=== PATIENT | female | born 1940 | race Caucasian/White ===

== ENCOUNTER 2022-11-21 17:51 | Inpatient (IN) ==
[2022-11-21] MEDS ORDERED: ACETAMINOPHEN 500 MG TAB PO STA (18:09)
[2022-11-21 18:21] LABS: Basophils # (auto) 0.04 K/uL (0-0.2); Basophils % (auto) 0.7 %; Eosinophils # (auto) 0.01 K/uL (0-0.50); Eosinophils % (auto) 0.2 %; Hematocrit (blood only) 46.1 % (34.1-44.9); Hemoglobin 16.2 g/dl (12.0-16.0); Immature Granulocytes # (auto) 0.04 K/uL (0.00-0.02); Immature Granulocytes % (auto) 0.7 %; Lymphocytes # (auto) 1.57 K/uL (1.2-3.4); Lymphocytes % (auto) 26.5 %; Mean Corpuscular Hemoglobin 34.3 pg (25.0-34.0); Mean Corpuscular Hgb Conc 35.1 g/dL (32.0-36.0); Mean Corpuscular Volume 97.7 fL (80.0-100.0); Mean Platelet Volume 10.8 fL (9.4-12.3); Monocytes # (auto) 0.53 K/uL (0.24-0.82); Monocytes % (auto) 8.9 %; Neutrophils # (auto) 3.74 K/uL (1.4-6.5); Platelet Count 152 K/uL (130-400); RDW Coefficient of Variation 12.9 % (11.5-14.5); RDW Standard Deviation 46.5 fL (36.4-46.3); Red Blood Count 4.72 M/uL (3.93-5.22); White Blood Count 5.93 K/ul (4.8-10.8)
[2022-11-21 18:42] LABS: Alanine Aminotransferase 29 U/L (7-52); Albumin Globulin Ratio 1.3 (0.9-2); Albumin Level 3.8 gm/dl (3.4-5.0); Alkaline Phosphatase 71 U/L (34-104); Anion Gap 8 (3-11); Aspartate Aminotransferase 40 U/L (13-39); BUN Creatinine Ratio 15.8 (10-20); Bilirubin,Total 0.5 mg/dl (0.2-1.0); Blood Urea Nitrogen 18 mg/dl (6-23); Calcium 8.6 mg/dl (8.5-10.1); Carbon Dioxide 25 mmol/L (21-32); Chloride 101 mmol/L (98-107); Est GFR (African American) 51.9 ml/min; Est GFR (Non-African American) 44.7 ml/min; Globulin 2.9 gm/dl (2.5-4.0); Glucose 72 mg/dl (70-99(Fasting)); Potassium 3.5 mmol/L (3.5-5.1); Sodium 134 mmol/L (136-145); Total Protein 6.7 gm/dl (6.0-8.3)
--- NOTE | 2022-11-21 18:58 | XRay Report ---
SINGLE VIEW CHEST CLINICAL HISTORY: Generalized weakness. FINDINGS: An AP, portable, upright chest radiograph is compared to study dated 11/22/2021. The cardiome diastinal silhouette is unremarkable noting atherosclerotic calcification of the thoracic aorta. Emph ysema and chronic interstitial thickening is similar to previous. Foci of parenchymal scarring are se en throughout both lungs, greatest at the lung bases. No airspace consolidation or large pleural effu serina is identified. No pneumothorax is seen. The skeletal structures are osteopenic. The bony thorax is grossly intact. IMPRESSION: Emphysematous change with no acute cardiopulmonary abnormality identified. ACT 112: Negative or not required by law. Electronically signed by: Liban Cavanaugh M.D. 11/21/2022 6:56 PM
[2022-11-21 19:01] LABS: Influenza B virus by PCR Negative (Neg); RSV by PCR Negative (Neg); SARS CoV2 RNA(COVID-19) Ceph NEGATIVE (Negative)
--- NOTE | 2022-11-21 19:05 | Emergency Department Note ---
Impression & Plan Influenza A, Fever, Hypoxia, Weakness ED Provider Note INFORMANT: Patient and family ED PROVIDER(S): Luther Gillespie MD CHIEF COMPLAINT: Flulike symptoms PLAN: Disposition: Admitted Condition: Good Outpatient prescription management: none Referral: None MEDICAL DECISION MAKING: Patient presented because of flulike symptoms. A work-up was initiated. She was mildly low on her O2 saturations down into the 88% range. I did apply 2 L nasal cannula oxygen and she did respond nicely. Was hydrated with normal saline. Chest x-ray was unremarkable. Patient had viral testing performed and was found to be positive for influenza A. She was treated with oral Tamiflu. Because of the weakness and low O2 saturations patient will need further management in the hospital. Her urinalysis was pending. Patient's ECG showed a normal sinus rhythm without acute ischemic change. [facility], Dr. Smith. Case was discussed and diagnostics were reviewed. Patient was admitted for further management. Triage Nursing notes reviewed and agree them. Vital Signs: reviewed and remarkable for mild hypoxia Prior /Outside records reviewed: none Differential diagnosis: Viral syndrome, COPD, reactive airway, dehydration, pneumonia, influenza, meningitis, urinary tract infection, sepsis, bacteremia, as well as other pathologies. Diagnostics, as interpreted by me: ECG: Twelve-lead ECG reveals a normal sinus rhythm at 60 bpm. Septal Q waves present. No ST elevation or depression. Cardiac Monitoring: Cardiac monitoring ordered by me: The patient was placed on continuous cardiac monitoring and observed. It revealed a sinus bradycardia 57 beats per minute without ectopy or evidence of dysrhythmia. Medical decision rules: none Imaging studies: Chest imaging consistent with emphysematous changes without obvious infiltrate. I refer you to the EMR for further details. HPI: The patient is a 82 year old female who presents to the Emergency Room with complaints of flulike symptoms. This started few days ago and is worse today per family. Patient lives alone but family is present to help with history. The patient also notes the following associated symptoms, weakness, shortness of breath, fever, dizziness, nausea. The patient has found no relieving factors. Current pain is rated as 0/10. No known sick contacts. Pt denies LOC,chills, diaphoresis, visual changes, neck pain, chest pain, breathing difficulties, vomiting, abdominal pain, back pain, diarrhea, urinary symptoms, numbness, lymphadenopathy, rash, or other complaints. PAST MEDICAL HISTORY: See Below, hypertension PAST SURGICAL HISTORY: See Below, SOCIAL HISTORY: See Below, smoker HOME MEDICATIONS: See Below ALLERGIES: See Below VITALS: See Below PHYSICAL EXAMINATION: GENERAL: Awake, alert, mildly ill appearing, no distress HEAD: Normocephalic, atraumatic. No edema. EYES: Normal conjunctiva. Sclera non-icteric. NOSE: Mild congestion. OROPHARYNX: Lips, tongue, and mucosa unremarkable. No erythema or exudate. NECK: Inspection normal. Non-tender. Supple. No nuchal rigidity. FROM. No adenopathy. RESPIRATORY: Few scattered rhonchi otherwise CTA bilaterally. No wheezes rales. Mildly increased respiratory effort. CARDIAC: Borderline tachycardic rate. Normal rhythm. No murmurs. No rubs. GI: Soft, non distended. No tenderness to palpation. NEURO: Normal sensorium. Normal speech. SKIN: No rash or jaundice noted. Past Med/Surg History Medical History Acid reflux Benign hypertension (09/29/11) Depression Diabetes mellitus Diverticulitis Forgetfulness DISCUSSED WITH PCP History of anesthesia reaction WITH HYSTERECTOMY TOOK A LONGER TIME TO COME OUT OF History of gout Hyperlipidemia Hypothyroid Kidney disease STAGE 3 Vitamin B 12 deficiency Surgical History H/O tubal ligation History of cholecystectomy History of colonoscopy with polypectomy History of hysterectomy History of left cataract surgery Hx of left breast biopsy Family History Son Family history of diabetes mellitus Son Family history of diabetes mellitus Social History Smoking Status: Current every day smoker Tobacco Type: Cigarettes Cigarettes Per Day: 20; Second Hand Exposure: No; Do You Dip or Chew Tobacco: No; Tobacco Cessation Education Requested by Patient: No Hx Alcohol Use: No Hx Substance Use: No Preferred Language: [place] Communication Ability: Effective Compliance Consultant Required: Yes Beliefs That Will Affect Care: None Current Living Situation: Alone Feels Safe at Home: Yes Safety Concerns: Feels Safe At This Time Assistive Devices: None, Cane, Glasses and Oxygen - Continuous Allergies Allergies Allergy/AdvReac Type Severity Reaction Status Date / Time indomethacin Allergy Unknown Rash Verified 11/21/22 22:13 paroxetine Allergy Unknown Rash Verified 11/21/22 22:13 cyclobenzaprine AdvReac Unknown Vomiting Verified 11/21/22 22:13 Macrolide Antibiotics AdvReac Unknown SKIN Verified 11/21/22 22:13 REDDENED, BURNING metformin AdvReac Unknown Diarrhea Verified 11/21/22 22:13 NSAIDS (Non-Steroidal AdvReac Unknown PT HAS Verified 11/21/22 22:13 Anti-Inflamma KIDNEY DISEASE - REASON THIS IS LISTED rofecoxib AdvReac Unknown BLACK Verified 11/21/22 22:13 STOOLS Sulfa (Sulfonamide AdvReac Unknown Headache Verified 11/21/22 22:13 Antibiotics) Sympathomimetics Allergy Unknown PT Uncoded 11/21/22 22:13 DAUGHTER DOES NOT RECALL THIS ONE Home Meds Home Medications Medication Instructions Recorded Confirmed albuterol sulfate 90 mcg/actuation 2 inh inhalation Q6H PRN Shortness 12/02/21 11/21/22 aerosol inhaler Of Breath Or Wheezing allopurinol 100 mg tablet 200 mg PO QAM 12/02/21 11/21/22 aspirin 81 mg tablet,delayed 81 mg PO HS 12/02/21 11/21/22 release atorvastatin 40 mg tablet 40 mg PO QAM 12/02/21 11/21/22 calcium carbonate 500 mg calcium 500 mg PO QAM 12/02/21 11/21/22 (1,250 mg) chewable tablet cholecalciferol (vitamin D3) 25 12.5 mcg PO 3XWK 12/02/21 11/21/22 mcg (1,000 unit) tablet (Vitamin D3) cyanocobalamin (vitamin B-12) 100 400 mcg PO DAILY 12/02/21 11/21/22 mcg tablet (Vitamin B-12) fluoxetine 40 mg capsule (Prozac) 40 mg PO QAM 12/02/21 11/21/22 fluticasone propionate 50 2 spray intranasal UD PRN Nasal 12/02/21 11/21/22 mcg/actuation nasal Congestion spray,suspension furosemide 20 mg tablet (Lasix) 20 mg PO 2XWK 12/02/21 11/21/22 glipizide 10 mg tablet 10 mg PO BID 12/02/21 11/21/22 levothyroxine 125 mcg tablet 125 mcg PO DAILYBB 12/02/21 11/21/22 lisinopril 20 mg tablet 10 mg PO QAM 12/02/21 11/21/22 loratadine 10 mg tablet (Claritin) 10 mg PO QAM 12/02/21 11/21/22 magnesium chloride 64 mg 64 mg PO BID 12/02/21 11/21/22 (magnesium chloride) tablet,delayed release (Mag 64) meclizine 25 mg tablet 25 mg PO TID PRN Dizziness 12/02/21 11/21/22 metoprolol succinate 100 mg 100 mg PO DAILY 12/02/21 11/21/22 tablet,extended release 24 hr omeprazole 40 mg capsule,delayed 40 mg PO QAM 12/02/21 11/21/22 release dicyclomine 10 mg capsule 10 mg PO QID PRN Cramps 11/21/22 11/21/22 ferrous sulfate 325 mg (65 mg 325 mg PO BID 11/21/22 11/21/22 iron) tablet Results & Data (ED) Vital Signs Vital Signs - 24 hr 11/21/22 17:59 11/21/22 17:59 11/21/22 19:40 Temperature 39.2 C H 39.2 C H 36.8 C Temperature Source Oral Oral Oral Pulse Rate 72 Pulse Rate [Apical] 72 65 Respiratory Rate 20 20 20 Respiratory Effort / Characteristics Non-Labored Non-Labored Non-Labored Respiratory Depth Normal Normal Normal Blood Pressure 141/76 H Blood Pressure [Right Arm] 141/76 H 139/47 L Blood Pressure Mean 97 Blood Pressure Mean [Right Arm] 97 77 Pulse Oximetry 91 91 95 Oxygen Delivery Method Room Air Room Air Nasal Cannula Oxygen Flow Rate 2 Sepsis Recent Fever Within 48 Hours Yes Sepsis New/Unexplained Change in Mental Status No Sepsis Action Taken by Nursing No Action Required 11/21/22 20:00 Temperature Temperature Source Pulse Rate Pulse Rate [Apical] 54 L Respiratory Rate 22 Respiratory Effort / Characteristics Respiratory Depth Blood Pressure Blood Pressure [Right Arm] Blood Pressure Mean Blood Pressure Mean [Right Arm] Pulse Oximetry 94 Oxygen Delivery Method Nasal Cannula Oxygen Flow Rate 2 Sepsis Recent Fever Within 48 Hours Sepsis New/Unexplained Change in Mental Status Sepsis Action Taken by Nursing Laboratory Data Result diagrams: 11/21/22 18:00 11/21/22 18:00 Lab Results 0111/21/22 11/21/22 Range/Units 18:00 18:00 18:00 WBC 5.93 (4.8-10.8) K/ul RBC 4.72 (3.93-5.22) M/uL Hgb 16.2 H (12.0-16.0) g/dl Hct 46.1 H (34.1-44.9) % MCV 97.7 (80.0-100.0) fL MCH 34.3 H (25.0-34.0) pg MCHC 35.1 (32.0-36.0) g/dL RDW Std Deviation 46.5 H (36.4-46.3) fL RDW Coeff of Kaitlynn 12.9 (11.5-14.5) % Plt Count 152 (130-400) K/uL MPV 10.8 (9.4-12.3) fL Immature Gran % (Auto) 0.7 % Neut % (Auto) 63.0 % Lymph % (Auto) 26.5 % Marathon % (Auto) 8.9 % Eos % (Auto) 0.2 % Baso % (Auto) 0.7 % Neut # (Auto) 3.74 (1.4-6.5) K/uL Lymph # (Auto) 1.57 (1.2-3.4) K/uL [place] # (Auto) 0.53 (0.24-0.82) K/uL Eos # (Auto) 0.01 (0-0.50) K/uL Baso # (Auto) 0.04 (0-0.2) K/uL Immature Gran # (Auto) 0.04 H (0.00-0.02) K/uL Sodium 134 L (136-145) mmol/L Potassium 3.5 (3.5-5.1) mmol/L Chloride 101 (98-107) mmol/L Carbon Dioxide 25 (21-32) mmol/L Anion Gap 8 (3-11) BUN 18 (6-23) mg/dl Creatinine 1.14 (0.6-1.2) mg/dl Est Cr Clr Drug Dosing Not Reportable Est GFR ( Amer) 51.9 ml/min Est GFR (Non-Af Amer) 44.7 ml/min BUN/Creatinine Ratio 15.8 (10-20) Glucose 72 (70-99(Fasting)) mg/dl Calcium 8.6 (8.5-10.1) mg/dl Total Bilirubin 0.5 (0.2-1.0) mg/dl AST 40 H (13-39) U/L ALT 29 (7-52) U/L Alkaline Phosphatase 71 (34-104) U/L Total Protein 6.7 (6.0-8.3) gm/dl Albumin 3.8 (3.4-5.0) gm/dl Globulin 2.9 (2.5-4.0) gm/dl Albumin/Globulin Ratio 1.3 (0.9-2) TSH 2.557 (0.300-4.500) uIu/ml SARS-CoV-2 (PCR) (Negative) Influenza Type A (PCR) (Neg) Influenza Type B (PCR) (Neg) RSV (RT-PCR) (Neg) 11/21/22 Range/Units 18:00 WBC (4.8-10.8) K/ul RBC (3.93-5.22) M/uL Hgb (12.0-16.0) g/dl Hct (34.1-44.9) % MCV (80.0-100.0) fL MCH (25.0-34.0) pg MCHC (32.0-36.0) g/dL RDW Std Deviation (36.4-46.3) fL RDW Coeff of Kaitlynn (11.5-14.5) % Plt Count (130-400) K/uL MPV (9.4-12.3) fL Immature Gran % (Auto) % Neut % (Auto) % Lymph % (Auto) % Marathon % (Auto) % Eos % (Auto) % Baso % (Auto) % Neut # (Auto) (1.4-6.5) K/uL Lymph # (Auto) (1.2-3.4) K/uL Marathon # (Auto) (0.24-0.82) K/uL Eos # (Auto) (0-0.50) K/uL Baso # (Auto) (0-0.2) K/uL Immature Gran # (Auto) (0.00-0.02) K/uL Sodium (136-145) mmol/L Potassium (3.5-5.1) mmol/L Chloride (98-107) mmol/L Carbon Dioxide (21-32) mmol/L Anion Gap (3-11) BUN (6-23) mg/dl Creatinine (0.6-1.2) mg/dl Est Cr Clr Drug Dosing Est GFR ( Amer) ml/min Est GFR (Non-Af Amer) ml/min BUN/Creatinine Ratio (10-20) Glucose (70-99(Fasting)) mg/dl Calcium (8.5-10.1) mg/dl Total Bilirubin (0.2-1.0) mg/dl AST (13-39) U/L ALT (7-52) U/L Alkaline Phosphatase (34-104) U/L Total Protein (6.0-8.3) gm/dl Albumin (3.4-5.0) gm/dl Globulin (2.5-4.0) gm/dl Albumin/Globulin Ratio (0.9-2) TSH (0.300-4.500) uIu/ml SARS-CoV-2 (PCR) NEGATIVE (Negative) Influenza Type A (PCR) Positive A* (Neg) Influenza Type B (PCR) Negative (Neg) RSV (RT-PCR) Negative (Neg) Administered Medications Albuterol (Albut/Ipratrop 3mg/0.5mg Neb 3 Ml Vial) 3 ml NEB Q4R CARLY; Protocol Stop: 12/21/22 22:59 Last Admin: 11/22/22 02:39 Dose: 3 ml Documented By: Admin: 11/21/22 23:07 Dose: 3 ml Documented By: MELVI Sodium Chloride (Nss 1000ml) 1,000 mls @ 65 mls/hr IV .[id number] [facility] Stop: 11/22/22 12:53 Last Infusion: 11/21/22 23:47 Dose: 65 mls/hr Documented By: Infusion: 11/21/22 23:44 Dose: 0 mls/hr Documented By: Admin: 11/21/22 22:01 Dose: 65 mls/hr Documented By: LIDA Ceftriaxone Sodium 1,000 mg/ (Dextrose) 50 mls @ 100 mls/hr IV Q24H CARLY; Protocol Stop: 11/28/22 21:29 Last Infusion: 11/21/22 22:35 Dose: 0 mls/hr Documented By: Admin: 11/21/22 22:01 Dose: 100 mls/hr Documented By: LIDA Doxycycline Hyclate 100 mg/ (Dextrose) 110 mls @ 50 mls/hr IV Q12H CARLY Stop: 11/28/22 21:59 Last Infusion: 11/22/22 01:27 Dose: 0 mls/hr Documented By: Admin: 11/21/22 22:34 Dose: 50 mls/hr Documented By: JANIS Discontinued Medications Acetaminophen (Acetaminophen 500 Mg Tab) 1,000 mg PO NOW STA Stop: 11/21/22 18:10 Last Admin: 11/21/22 18:26 Dose: 1,000 mg Documented By: JANIS Sodium Chloride (Nss 1000ml) 1,000 mls @ 125 mls/hr IV .Q8H CARLY Stop: 12/21/22 19:59 Last Infusion: 11/21/22 22:02 Dose: 0 mls/hr Documented By: Admin: 11/21/22 20:15 Dose: 125 mls/hr Documented By: JANIS Miscellaneous (Patient's Height &/Or Weight Needed) 1 each N/A Q2H CARLY Stop: 12/21/22 21:44 Last Admin: 11/21/22 22:07 Dose: 1 each Documented By: LIDA Oseltamivir Phosphate (Oseltamivir Phosphate 75 Mg Cap) 75 mg PO NOW STA; Protocol Stop: 11/21/22 19:54 Last Admin: 11/21/22 20:15 Dose: 75 mg Documented By: JANIS Imaging Data Radiologist's Impression: Chest X-Ray 11/21/22 18:08 SINGLE VIEW CHEST CLINICAL HISTORY: Generalized weakness. FINDINGS: An AP, portable, upright chest radiograph is compared to study dated 11/22/2021. The cardiomediastinal silhouette is unremarkable noting atheroscler otic calcification of the thoracic aorta. Emphysema and chronic interstitial thickening is similar to previous. Foci of parenchymal scarring are seen throughout both lungs, greatest at the lung bases. No airspace consolidation or large pleural effusion is identified. No pneumothorax is seen. The skeletal structures are osteopenic. The bony thorax is grossly intact. IMPRESSION: Emphysematous change with no acute cardiopulmonary abnormality identified. ACT 112: Negative or not required by law. Electronically signed by: Liban Cavanaugh M.D. 11/21/2022 6:56 PM Discharge Plan Visit Data Chief Complaint: Illness ED Provider: Luther Gillespie Discharge Problem: Influenza A, Fever, Hypoxia, Weakness Patient Disposition: Admitted As Inpatient Discharge Instructions Interventions: ED Discharge Assessment Last Done: 11/21/22 22:34
[2022-11-21 19:37] LABS: Influenza A virus by PCR Positive (Neg)
[2022-11-21] MEDS ORDERED: OSELTAMIVIR PHOSPHATE 75 MG CAP PO STA (19:53)
[2022-11-21] MEDS ORDERED: SODIUM CHLORIDE 0.9% 1000ML 1,000 ML IV SCH ×2 (20:00→21:30)
[2022-11-21] MEDS ORDERED: MAGNESIUM HYDROXIDE SUSP 30 ML UDC PO PRN (21:31)
[2022-11-21] MEDS ORDERED: ALUMINUM/MAGNESIUM SUSP 30 ML UDC PO PRN (21:31)
[2022-11-21] MEDS ORDERED: ONDANSETRON INJ 2 MG/ML 2 ML VIAL IV PRN (21:31)
--- NOTE | 2022-11-21 21:42 | History & Physical Report ---
Date of Service November 21, 2022 Assessment & Plan (1) Hypoxia: Plan Generalized weakness Influenza A Possible pneumonia Hypoxia Patient presents with 4 days of illness, reports productive cough with yellow sputum, is febrile, not septic at presentation. Admitting WBC WNL, admitting CXR with emphysematous changes with no acute findings. EKG with NSR. On examination mid and basal crackles bilaterally. Patient with abdominal muscle use for breathing. Will get Pro-Toby, will initiate Rocephin and doxycycline IV, Tamiflu, DuoNebs, incentive spirometer when able, supportive management. PT/OT when able, isolation precaution. Labs in a.m. follow admitting blood culture. Sputum culture. Other chronic medical conditions: Resume home meds as able. SSI while in hosp. Heparin subcu DNR/DNI History of Present Illness Chief Complaint: Generalized weakness, flulike illness, cough Primary Care Provider: Elio Morrissey MD 82-year-old lady with PMH of T2DM, HLD, gout, CKD stage III, chronic rhinitis, PVD, abdominal aortic ectasia, HTN, esophageal reflux, IBS, vitamin D deficiency, tobacco use disorder, chronic depression presented to the ED 11/21 with complaint of not feeling good for 3 to 4 days prior to arrival. Patient reports not feeling good since last few days, is sick at stomach with some belly discomfort, no vomiting, becoming weak and easily fatigable, has no appetite, wanted to do nothing but just lay around lately, cough with yellow sputum production, fever, denies any swallowing issues, associated with headache/sore throat/dizziness/lightheadedness. Patient also reports diarrhea since last 2 to 3 days. Patient denies chest pain or palpitation. Patient denies any pain or burning with passing urine. Patient has smoking history [pack years 48], denies use of alcohol or recreational drugs. DNR/DNI per my discussion with the patient and her daughter You at bedside, plan of care was also discussed with them. Family history positive for heart disorder and hypertension in mother and neurological disorder in father. Medications were reviewed with patient's daughter at bedside. Allergies Allergy/AdvReac Type Severity Reaction Status Date / Time indomethacin Allergy Unknown Rash Verified 02/02/22 08:49 paroxetine Allergy Unknown Rash Verified 02/02/22 08:49 cyclobenzaprine AdvReac Unknown Vomiting Verified 02/02/22 08:49 Macrolide Antibiotics AdvReac Unknown SKIN Verified 02/02/22 08:49 REDDENED, BURNING metformin AdvReac Unknown Diarrhea Verified 02/02/22 08:49 NSAIDS (Non-Steroidal AdvReac Unknown PT HAS Verified 02/02/22 08:49 Anti-Inflamma KIDNEY DISEASE - REASON THIS IS LISTED rofecoxib AdvReac Unknown BLACK Verified 02/02/22 08:49 STOOLS Sulfa (Sulfonamide AdvReac Unknown Headache Verified 02/02/22 08:49 Antibiotics) Sympathomimetics Allergy Unknown PT Uncoded 02/02/22 08:49 DAUGHTER DOES NOT RECALL THIS ONE Home Medications Medication Instructions Recorded Confirmed Type albuterol sulfate 90 mcg/actuation 2 inh inhalation Q6H PRN Shortness 12/02/21 01/26/22 History aerosol inhaler Of Breath Or Wheezing allopurinol 100 mg tablet 200 mg PO QAM 12/02/21 01/26/22 History aspirin 81 mg tablet,delayed 81 mg PO HS 12/02/21 01/26/22 History release atorvastatin 40 mg tablet 40 mg PO QAM 12/02/21 01/26/22 History calcium carbonate 500 mg calcium 500 mg PO QAM 12/02/21 01/26/22 History (1,250 mg) chewable tablet cholecalciferol (vitamin D3) 25 12.5 mcg PO 3XWK 12/02/21 01/26/22 History mcg (1,000 unit) tablet (Vitamin D3) cyanocobalamin (vitamin B-12) 100 400 mcg PO DAILY 12/02/21 01/26/22 History mcg tablet (Vitamin B-12) fluoxetine 40 mg capsule (Prozac) 40 mg PO QAM 12/02/21 01/26/22 History fluticasone propionate 50 2 spray intranasal UD PRN Nasal 12/02/21 01/26/22 History mcg/actuation nasal Congestion spray,suspension furosemide 20 mg tablet (Lasix) 20 mg PO UD PRN EDEMA, WT GAIN OF 12/02/21 01/26/22 History >3 LBS. glipizide 10 mg tablet 10 mg PO BID 12/02/21 01/26/22 History levothyroxine 125 mcg tablet 125 mcg PO DAILYBB 12/02/21 01/26/22 History lisinopril 20 mg tablet 10 mg PO QAM 12/02/21 01/26/22 History loratadine 10 mg tablet (Claritin) 10 mg PO QAM 12/02/21 01/26/22 History magnesium chloride 64 mg 64 mg PO BID 12/02/21 01/26/22 History (magnesium chloride) tablet,delayed release (Mag 64) meclizine 25 mg tablet 25 mg PO TID PRN Dizziness 12/02/21 01/26/22 History metoprolol succinate 100 mg 100 mg PO DAILY 12/02/21 01/26/22 History tablet,extended release 24 hr omeprazole 40 mg capsule,delayed 40 mg PO QAM 12/02/21 01/26/22 History release Past Med/Surg History Medical History Acid reflux Benign hypertension (09/29/11) Depression Diabetes mellitus Diverticulitis Forgetfulness DISCUSSED WITH PCP History of anesthesia reaction WITH HYSTERECTOMY TOOK A LONGER TIME TO COME OUT OF History of gout Hyperlipidemia Hypothyroid Kidney disease STAGE 3 Vitamin B 12 deficiency Surgical History H/O tubal ligation History of cholecystectomy History of colonoscopy with polypectomy History of hysterectomy History of left cataract surgery Hx of left breast biopsy Family History Son Family history of diabetes mellitus Son Family history of diabetes mellitus Social History Smoking Status: Current every day smoker Tobacco Type: Cigarettes Cigarettes Per Day: 1ppd; Second Hand Exposure: No; Hx Alcohol Use: No Hx Substance Use: No Preferred Language: Nepali Communication Ability: Effective Acute Care Registered Nurse Required: No Beliefs That Will Affect Care: None Current Living Situation: Alone Feels Safe at Home: Yes Assistive Devices: Denture - Upper, Denture - Lower, Glasses and Hearing Aid - Bilateral Review of Systems Review of Systems: Negative otherwise mentioned in HPI. Physical Exam Physical Exam: GENERAL: Alert and oriented x3. NAD, on 2 L NC O2. Appears ill/weak/frail. HEENT: No pallor, no icterus. Pupils equal, round and reactive to light. Oral mucosa moist. NECK: No JVD, no neck masses. HEART: S1 and S2 heard. Regular rate and rhythm. No murmur, no gallop. RESPIRATORY SYSTEM: Normal AP diameter. No accessory muscle use. No wheezing, mid and basal crackles bilaterally. Abd m. use for breathing ABDOMEN: Soft, bowel sounds present, nontender, no distention. CENTRAL NERVOUS SYSTEM: No facial droop. Speech is clear. Obeys simple commands. Moves extremities. EXTREMITIES: No edema, no erythema seen. Results & Data Results & Data ([facility]) Vital Signs (Past 12 Hours) Vital Signs Temp Pulse Pulse Resp BP BP Pulse Ox 11/21/22 20:00 54 L 22 94 11/21/22 19:40 36.8 C 65 20 139/47 L 95 11/21/22 17:59 39.2 C H 72 20 141/76 H 91 11/21/22 17:59 39.2 C H 72 20 141/76 H 91 O2 Del Method O2 Flow Rate 11/21/22 20:00 Nasal Cannula 2 11/21/22 19:40 Nasal Cannula 2 11/21/22 17:59 Room Air 11/21/22 17:59 Room Air
[2022-11-21] MEDS ORDERED: Patient's HEIGHT &/or WEIGHT Needed SCH (21:45)
[2022-11-21] MEDS: cefTRIAXone SODIUM 1,000 MG in DEXTROSE 5% AD-VAN 50 ML IV SCH (22:01)
[2022-11-21] MEDS: DOXYCYCLINE HYCLATE 100 MG in DEXTROSE 5% 100 ML IV SCH (22:34)
[2022-11-21] MEDS ORDERED: GLUCOSE 10 TAB/TUBE PO PRN (22:53)
[2022-11-21] MEDS ORDERED: FLUTICASONE PROPIONATE NA SPR 16 GM BTL PRN (22:53)
[2022-11-21] MEDS ORDERED: GLUCOSE 40% GEL 15 GM TUBE PO PRN (22:53)
[2022-11-21] MEDS ORDERED: DEXTROSE 50% 50 ML SYRINGE IV PRN (22:53)
[2022-11-21] MEDS ORDERED: GLUCAGON FOR INJ 1 MG VIAL SQ PRN (22:53)
[2022-11-21] MEDS ORDERED: CARBOHYDRATES FOR HYPOGLYCEMIA PO PRN (22:53)
[2022-11-21] MEDS: ALBUT/IPRATROP 3MG/0.5MG NEB 3 ML VIAL NEB SCH (23:07)
[2022-11-22] MEDS: ALBUT/IPRATROP 3MG/0.5MG NEB 3 ML VIAL NEB SCH ×6 (02:39→23:47)
[2022-11-22] MEDS: LEVOTHYROXINE SODIUM 125 MCG TABLET PO SCH (04:58)
[2022-11-22 08:34] LABS: Hematocrit (blood only) 43.4 % (34.1-44.9); Hemoglobin 15.2 g/dl (12.0-16.0); Mean Corpuscular Hemoglobin 34.3 pg (25.0-34.0); Mean Platelet Volume 10.6 fL (9.4-12.3); Platelet Count 133 K/uL (130-400); RDW Coefficient of Variation 12.9 % (11.5-14.5); RDW Standard Deviation 46.4 fL (36.4-46.3); Red Blood Count 4.43 M/uL (3.93-5.22); White Blood Count 6.28 K/ul (4.8-10.8)
[2022-11-22] MEDS: INSULIN ASPART PER UNIT SC SCH ×4 (08:37→20:55)
[2022-11-22] MEDS: LANTUS PER UNIT CHARGE SQ SCH ×2 (08:37→20:56)
[2022-11-22] MEDS: DOXYCYCLINE HYCLATE 100 MG in DEXTROSE 5% 100 ML IV SCH (08:38)
[2022-11-22] MEDS: OSELTAMIVIR PHOSPHATE SUSP 30 MG/5 ML UDP PO SCH ×2 (08:38→21:11)
[2022-11-22] MEDS: HEPARIN SOD 5,000 UNIT/0.5 ML VIAL SQ SCH ×2 (08:41→20:53)
[2022-11-22] MEDS: lisinopril 10 MG TAB PO SCH (08:42)
[2022-11-22] MEDS: CYANOCOBALAMIN (B-12) 100 MCG TABLET PO SCH (08:42)
[2022-11-22] MEDS: ATORVASTATIN 40 MG TAB PO SCH (08:42)
[2022-11-22] MEDS: FLUoxetine HCL 20 MG CAP PO SCH (08:42)
[2022-11-22] MEDS: METOPROLOL SUCC 50MG EXT REL TAB PO SCH (08:42)
[2022-11-22] MEDS: PANTOprazole 40 MG TAB PO SCH (08:42)
[2022-11-22] MEDS: ACETAMINOPHEN 325 MG TAB PO PRN ×2 (08:49→16:20)
[2022-11-22 09:01] LABS: BUN Creatinine Ratio 18.6 (10-20); Calcium 8.2 mg/dl (8.5-10.1); Creatinine Clr Calc Pharmacy 39.7 ml/min; Est GFR (Non-African American) 54.4 ml/min; Magnesium 1.4 mg/dl (1.7-2.4); Phosphorus 3.2 mg/dl (2.5-4.9); Potassium 3.1 mmol/L (3.5-5.1)
--- NOTE | 2022-11-22 12:41 | Electrocardiogram Report ---
Test Reason : Blood Pressure : / mmHG Vent. Rate : 060 BPM Atrial Rate : 060 BPM P-R Int : 148 ms QRS Dur : 090 ms QT Int : 460 ms P-R-T Axes : -24 070 043 degrees QTc Int : 460 ms Normal sinus rhythm with sinus arrhythmia Septal infarct , age undetermined Abnormal ECG No previous ECGs available Confirmed by Dominic Lujan ([id number]) on 11/22/2022 12:40:27 PM Referred By: REFERRED SELF Confirmed By:Dominic Lujan
--- NOTE | 2022-11-22 12:44 | Hospitalist Progress Note ---
Date of Service November 22, 2022 Assessment & Plan (1) Hypoxia: Plan Influenza A Acute bronchitis secondary to above Hypoxia Generalized weakness -CXR:Emphysematous change with no acute cardiopulmonary abnormality identified. -Normal procalcitonin -Blood, sputum culture pending Continue Tamiflu Empirically on Rocephin, doxycycline Continue supplemental oxygen as needed DM II hold p.o. meds Utilize insulin per protocol while hospitalized Monitor BGs Hypothyroidism Continue levothyroxine Hypertension Continue lisinopril, metoprolol PVD Hyperlipidemia On aspirin, Lipitor Mood disorder Continue home medications CKD III Monitor renal function Avoid nephrotoxic agents as able DVT Px: Heparin SQ Code Status DNR/DNI Admission and Anticipated Discharge Date Admission Date: November 21, 2022 Subjective Patient is seen and examined at bedside Less cough, dyspnea today Had 2 loose bowel movements Reports on and off chronic diarrhea at baseline Denies any chest pain, nausea, vomiting, abdominal pain No other complaints Review of Systems Review of Systems: All systems reviewed & are unremarkable except as noted in Subjective Physical Exam Physical Exam: Physical Exam: Vitals signs as noted above General Appearance:Moderately built and nourished, no apparent distress Head: normocephalic, Atraumatic Eyes: normal inspection, EOMI Neck: supple, Trachea midline Respiratory/Chest: Normal breath sounds, CTA, No accessory muscle use Cardiovascular: S1, S2, No murmur Abdomen/GI:Soft, Non tender, Bowel sounds present Extremities/Musculoskeletal:normal inspection, no edema Neurologic/Psych:AAO, grossly no focal neurological deficits, Mild hearing impairment Skin: normal color, warm Results & Data Results & Data ([facility]) Vital Signs (Past 12 Hours) Vital Signs Temp Pulse Pulse Pulse Resp BP Pulse Ox 11/22/22 11:17 59 L 18 115/73 98 11/22/22 11:05 69 18 93 11/22/22 08:00 11/22/22 07:47 37.5 C 77 20 139/80 93 11/22/22 07:39 66 11/22/22 07:12 70 18 96 11/22/22 04:00 36.6 C 71 20 155/79 H 97 11/22/22 02:39 55 L 18 96 O2 Del Method O2 Flow Rate 11/22/22 11:17 Nasal Cannula 11/22/22 11:05 Nasal Cannula 2 11/22/22 08:00 Nasal Cannula 2 11/22/22 07:47 Nasal Cannula 2 11/22/22 07:39 11/22/22 07:12 Nasal Cannula 2 11/22/22 04:00 Nasal Cannula 2 11/22/22 02:39 Nasal Cannula 2 Laboratory Results Short CBC 11/21/22 11/22/22 Range/Units 18:00 07:54 WBC 5.93 6.28 (4.8-10.8) K/ul Hgb 16.2 H 15.2 (12.0-16.0) g/dl Hct 46.1 H 43.4 (34.1-44.9) % Plt Count 152 133 (130-400) K/uL BMP 11/21/22 11/22/22 18:00 07:54 Sodium 134 L 133 L Potassium 3.5 3.1 L Chloride 101 101 Carbon Dioxide 25 23 BUN 18 18 Creatinine 1.14 0.97 Glucose 72 95 Calcium 8.6 8.2 L Liver Function 11/21/22 Range/Units 18:00 Total Bilirubin 0.5 (0.2-1.0) mg/dl AST 40 H (13-39) U/L ALT 29 (7-52) U/L Alkaline Phosphatase 71 (34-104) U/L Albumin 3.8 (3.4-5.0) gm/dl
--- NOTE | 2022-11-22 12:47 | Electrocardiogram Report ---
Test Reason : Blood Pressure : / mmHG Vent. Rate : 061 BPM Atrial Rate : 061 BPM P-R Int : 152 ms QRS Dur : 084 ms QT Int : 438 ms P-R-T Axes : -24 083 054 degrees QTc Int : 440 ms Normal sinus rhythm Septal infarct (cited on or before 21-NOV-2022) Abnormal ECG When compared with ECG of 21-NOV-2022 19:03, (unconfirmed) No significant change was found Confirmed by Dominic Lujan ([id number]) on 11/22/2022 12:47:08 PM Referred By: REFERRED SELF Confirmed By:Dominic Lujan
[2022-11-22] MEDS: ADVANCED PROBIOTIC 1250 MG CAPSULE PO SCH (13:07)
[2022-11-22 17:18] LABS: Adenovirus F 40/41 PCR Not Detected (NotDetected); Astrovirus PCR Not Detected (NotDetected); Campylobacter PCR Not Detected (NotDetected); Cryptosporidium PCR Not Detected (NotDetected); Cyclospora cayetanensis PCR Not Detected (NotDetected); Entamoeba histolytica PCR Not Detected (NotDetected); Enteroaggregative E.coli(EAEC) Not Detected (NotDetected); Enterotoxigenic E.coli (ETEC) Not Detected (NotDetected); Giardia lamblia PCR Not Detected (NotDetected); Norovirus GI/GII PCR Not Detected (NotDetected); Plesiomonas shigelloides PCR Not Detected (NotDetected); Rotavirus A PCR Not Detected (NotDetected); Salmonella PCR Not Detected (NotDetected); Sapovirus PCR Not Detected (NotDetected); Shiga-like Toxin E.coli (STEC) Not Detected (NotDetected); Shigella/Enteroinvasive E.coli Not Detected (NotDetected); Vibrio cholerae PCR Not Detected (NotDetected); Vibrio species PCR Not Detected (NotDetected); Yersinia enterocolitica PCR Not Detected (NotDetected)
[2022-11-22 17:25] LABS: Enteropathogenic E.coli (EPEC) DETECTED (NotDetected)
[2022-11-22] MEDS ORDERED: AZITHROMYCIN 250 MG TAB PO SCH (17:45)
[2022-11-22] MEDS: ASPIRIN 81 MG ECTAB PO SCH (20:53)
[2022-11-22] MEDS: cefTRIAXone SODIUM 1,000 MG in DEXTROSE 5% AD-VAN 50 ML IV SCH (20:59)
[2022-11-22] MEDS ORDERED: DOXYCYCLINE HYCLATE 100 MG CAP PO SCH (21:00)
[2022-11-22 21:49] LABS: Appearance Urine Clear (Clear); Bacteria Urine Automated Negative (Negative); Bilirubin Urine Negative (Negative); Blood Urine Trace (Negative); Color Urine Yellow; Epithelial Cell Urine Auto >30 /lpf (0-5); Glucose Urine UA Negative (Negative); Ketones Urine Negative (Negative); Leukocyte Esterase Urine Trace (Negative); Nitrite Urine Negative (Negative); Protein Urine Trace (Negative); RBC Urine Automated 0-4 /hpf (0-4); Specific Gravity Urine 1.008 (1.000-1.030); Urobilinogen Urine Negative (Negative); pH Urine 5.5 (4.5-7.5)
[2022-11-23] MEDS: ALBUT/IPRATROP 3MG/0.5MG NEB 3 ML VIAL NEB SCH ×6 (02:26→22:55)
[2022-11-23] MEDS: LEVOTHYROXINE SODIUM 125 MCG TABLET PO SCH (05:27)
[2022-11-23] MEDS: lisinopril 10 MG TAB PO SCH (07:49)
[2022-11-23] MEDS: FLUoxetine HCL 20 MG CAP PO SCH (07:49)
[2022-11-23] MEDS: CYANOCOBALAMIN (B-12) 100 MCG TABLET PO SCH (07:50)
[2022-11-23] MEDS: PANTOprazole 40 MG TAB PO SCH (07:50)
[2022-11-23] MEDS: METOPROLOL SUCC 50MG EXT REL TAB PO SCH (07:50)
[2022-11-23] MEDS: ATORVASTATIN 40 MG TAB PO SCH (07:50)
[2022-11-23] MEDS: ADVANCED PROBIOTIC 1250 MG CAPSULE PO SCH (07:50)
[2022-11-23] MEDS: HEPARIN SOD 5,000 UNIT/0.5 ML VIAL SQ SCH ×2 (07:51→21:27)
[2022-11-23] MEDS: OSELTAMIVIR PHOSPHATE SUSP 30 MG/5 ML UDP PO SCH ×2 (07:51→21:37)
[2022-11-23] MEDS: LANTUS PER UNIT CHARGE SQ SCH ×2 (07:55→21:29)
[2022-11-23] MEDS: INSULIN ASPART PER UNIT SC SCH ×4 (07:55→21:28)
[2022-11-23 09:39] LABS: BUN Creatinine Ratio 16.5 (10-20); Calcium 8.8 mg/dl (8.5-10.1); Creatinine Clr Calc Pharmacy 31.8 ml/min; Est GFR (African American) 48.3 ml/min; Est GFR (Non-African American) 41.6 ml/min; Magnesium 1.4 mg/dl (1.7-2.4); Potassium 3.2 mmol/L (3.5-5.1)
[2022-11-23 10:18] LABS: Hematocrit (blood only) 42.4 % (34.1-44.9); Hemoglobin 14.9 g/dl (12.0-16.0); Mean Corpuscular Hemoglobin 34.5 pg (25.0-34.0); Mean Corpuscular Hgb Conc 35.1 g/dL (32.0-36.0); Mean Corpuscular Volume 98.1 fL (80.0-100.0); Mean Platelet Volume 10.7 fL (9.4-12.3); Platelet Count 132 K/uL (130-400); RDW Standard Deviation 47.2 fL (36.4-46.3); Red Blood Count 4.32 M/uL (3.93-5.22); White Blood Count 5.77 K/ul (4.8-10.8)
--- NOTE | 2022-11-23 14:17 | Hospitalist Progress Note ---
Date of Service November 23, 2022 Assessment & Plan (1) Hypoxia: Plan Influenza A Acute bronchitis secondary to above Hypoxia Generalized weakness -CXR:Emphysematous change with no acute cardiopulmonary abnormality identified. -Normal procalcitonin -Blood culture no growth till date Sputum culture moderate normal megan Continue Tamiflu for total of 5 days Continue supplemental oxygen as needed Levaquin for 3 more days Will need outpatient follow-up with pulmonology for management of possible COPD. Diarrhea secondary to enteropathogenic E. coli Bio fire positive for enteropathogenic E. coli.- Reports burning around her mouth with azithromycin Started on Levaquin for 3 days DM II hold p.o. meds Utilize insulin per protocol while hospitalized Monitor BGs Hypothyroidism Continue levothyroxine Hypertension Continue lisinopril, metoprolol PVD Hyperlipidemia On aspirin, Lipitor Mood disorder Continue home medications CKD III Monitor renal function Avoid nephrotoxic agents as able DVT Px: Heparin SQ Code Status DNR/DNI Admission and Anticipated Discharge Date Admission Date: November 21, 2022 Subjective Patient seen and examined at bedside. She is comfortably lying in the bed; not in any distress. Reports 2 episodes of diarrhea in the morning. Oxygen requirement weaned off to room air. Review of Systems Review of Systems: All systems reviewed & are unremarkable except as noted in Subjective Physical Exam Physical Exam: Physical Exam: Vitals signs as noted above General Appearance:Moderately built and nourished, no apparent distress Head: normocephalic, Atraumatic Eyes: normal inspection, EOMI Neck: supple, Trachea midline Respiratory/Chest: Normal breath sounds, CTA, No accessory muscle use Cardiovascular: S1, S2, No murmur Abdomen/GI:Soft, Non tender, Bowel sounds present Extremities/Musculoskeletal:normal inspection, no edema Neurologic/Psych:AAO, grossly no focal neurological deficits, Mild hearing impairment Skin: normal color, warm Results & Data Results & Data ([facility]) Vital Signs (Past 12 Hours) Vital Signs Temp Pulse Pulse Resp BP Pulse Ox O2 Del Method 11/23/22 11:10 36.9 C 66 18 103/65 92 Room Air 11/23/22 10:41 61 18 98 Nasal Cannula 11/23/22 08:00 Nasal Cannula 11/23/22 07:33 37.0 C 73 18 102/56 L 94 Nasal Cannula 11/23/22 07:19 70 11/23/22 05:47 72 18 97 Nasal Cannula 11/23/22 03:34 37 C 65 18 129/75 95 Nasal Cannula O2 Flow Rate 11/23/22 11:10 11/23/22 10:41 2 11/23/22 08:00 3 11/23/22 07:33 3 11/23/22 07:19 11/23/22 05:47 2 11/23/22 03:34 3 Laboratory Results Laboratory Results WBC 5.77 K/ul (4.8-10.8) 11/23/22 08:45 RBC 4.32 M/uL (3.93-5.22) 11/23/22 08:45 Hgb 14.9 g/dl (12.0-16.0) 11/23/22 08:45 Hct 42.4 % (34.1-44.9) 11/23/22 08:45 MCV 98.1 fL (80.0-100.0) 11/23/22 08:45 MCH 34.5 pg (25.0-34.0) H 11/23/22 08:45 MCHC 35.1 g/dL (32.0-36.0) 11/23/22 08:45 RDW Std Deviation 47.2 fL (36.4-46.3) H 11/23/22 08:45 RDW Coeff of Kaitlynn 13.0 % (11.5-14.5) 11/23/22 08:45 Plt Count 132 K/uL (130-400) 11/23/22 08:45 MPV 10.7 fL (9.4-12.3) 11/23/22 08:45 Immature Gran % (Auto) 0.7 % 11/21/22 18:00 Neut % (Auto) 63.0 % 11/21/22 18:00 Lymph % (Auto) 26.5 % 11/21/22 18:00 [place] % (Auto) 8.9 % 11/21/22 18:00 Eos % (Auto) 0.2 % 11/21/22 18:00 Baso % (Auto) 0.7 % 11/21/22 18:00 Neut # (Auto) 3.74 K/uL (1.4-6.5) 11/21/22 18:00 Lymph # (Auto) 1.57 K/uL (1.2-3.4) 11/21/22 18:00 [place] # (Auto) 0.53 K/uL (0.24-0.82) 11/21/22 18:00 Eos # (Auto) 0.01 K/uL (0-0.50) 11/21/22 18:00 Baso # (Auto) 0.04 K/uL (0-0.2) 11/21/22 18:00 Immature Gran # (Auto) 0.04 K/uL (0.00-0.02) H 11/21/22 18:00 Sodium 135 mmol/L (136-145) L 11/23/22 08:45 Potassium 3.2 mmol/L (3.5-5.1) L 11/23/22 08:45 Chloride 102 mmol/L (98-107) 11/23/22 08:45 Carbon Dioxide 24 mmol/L (21-32) 11/23/22 08:45 Anion Gap 9 (3-11) 11/23/22 08:45 BUN 20 mg/dl (6-23) 11/23/22 08:45 Creatinine 1.21 mg/dl (0.6-1.2) H 11/23/22 08:45 Est Cr Clr Drug Dosing 31.8 ml/min 11/23/22 08:45 Est GFR ( Amer) 48.3 ml/min 11/23/22 08:45 Est GFR (Non-Af Amer) 41.6 ml/min 11/23/22 08:45 BUN/Creatinine Ratio 16.5 (10-20) 11/23/22 08:45 Glucose 179 mg/dl (70-99(Fasting)) H 11/23/22 08:45 POC Glucose 137 mg/dl (70-99) H 11/23/22 11:37 Calcium 8.8 mg/dl (8.5-10.1) 11/23/22 08:45 Phosphorus 3.2 mg/dl (2.5-4.9) 11/22/22 07:54 Magnesium 1.4 mg/dl (1.7-2.4) L 11/23/22 08:45 Total Bilirubin 0.5 mg/dl (0.2-1.0) 11/21/22 18:00 AST 40 U/L (13-39) H 11/21/22 18:00 ALT 29 U/L (7-52) 11/21/22 18:00 Alkaline Phosphatase 71 U/L (34-104) 11/21/22 18:00 Total Protein 6.7 gm/dl (6.0-8.3) 11/21/22 18:00 Albumin 3.8 gm/dl (3.4-5.0) 11/21/22 18:00 Globulin 2.9 gm/dl (2.5-4.0) 11/21/22 18:00 Albumin/Globulin Ratio 1.3 (0.9-2) 11/21/22 18:00 Procalcitonin 0.14 ng/ml (0-0.5) 11/23/22 08:45 TSH 2.557 uIu/ml (0.300-4.500) 11/21/22 18:00 Urine Color Yellow 11/22/22 21:20 Urine Appearance Clear (Clear) 11/22/22 21:20 Urine pH 5.5 (4.5-7.5) 11/22/22 21:20 Ur Specific [place] 1.008 (1.000-1.030) 11/22/22 21:20 Urine Protein Trace (Negative) H 11/22/22 21:20 Urine Glucose (UA) Negative (Negative) 11/22/22 21:20 Urine Ketones Negative (Negative) 11/22/22 21:20 Urine Blood Trace (Negative) H 11/22/22 21:20 Urine Nitrite Negative (Negative) 11/22/22 21:20 Urine Bilirubin Negative (Negative) 11/22/22 21:20 Urine Urobilinogen Negative (Negative) 11/22/22 21:20 Ur Leukocyte Esterase Trace (Negative) H 11/22/22 21:20 Urine WBC (Auto) 1-5 /hpf (0-5) 11/22/22 21:20 Urine RBC (Auto) 0-4 /hpf (0-4) 11/22/22 21:20 U Hyaline Cast (Auto) 1-5 /lpf (0-5) 11/22/22 21:20 U Epithel Cells (Auto) >30 /lpf (0-5) H 11/22/22 21:20 Urine Bacteria (Auto) Negative (Negative) 11/22/22 21:20 Stl C. cayetanensis PCR Not Detected (NotDetected) 11/22/22 15:43 Stool Rotavirus A PCR Not Detected (NotDetected) 11/22/22 15:43 Stl Adenov F 40/41 PCR Not Detected (NotDetected) 11/22/22 15:43 Stool Astrovirus (PCR) Not Detected (NotDetected) 11/22/22 15:43 Stool Campylobacter PCR Not Detected (NotDetected) 11/22/22 15:43 Stl C. diff Tox B Gene Negative Cdiff Gene (Neg) 11/22/22 15:43 Stool Cryptosporidium PCR Not Detected (NotDetected) 11/22/22 15:43 Stl E.coli Shiga Tox PCR Not Detected (NotDetected) 11/22/22 15:43 Stl Enterotoxigenic E PCR Not Detected (NotDetected) 11/22/22 15:43 Stool EPEC (PCR) DETECTED (NotDetected) A* 11/22/22 15:43 Stool EAEC (PCR) Not Detected (NotDetected) 11/22/22 15:43 Stl E. histolytica PCR Not Detected (NotDetected) 11/22/22 15:43 Stool Giardia Lamblia PCR Not Detected (NotDetected) 11/22/22 15:43 Stool Salmonella PCR Not Detected (NotDetected) 11/22/22 15:43 Stool Sapovirus (PCR) Not Detected (NotDetected) 11/22/22 15:43 Stl P. shigelloides PCR Not Detected (NotDetected) 11/22/22 15:43 Stl Shigella/EIEC PCR Not Detected (NotDetected) 11/22/22 15:43 St Y.enterocolitica PCR Not Detected (NotDetected) 11/22/22 15:43 Stool Vibrio (PCR) Not Detected (NotDetected) 11/22/22 15:43 Stl Vibrio cholerae PCR Not Detected (NotDetected) 11/22/22 15:43 Stl Norovirus GI/GII PCR Not Detected (NotDetected) 11/22/22 15:43 SARS-CoV-2 (PCR) NEGATIVE (Negative) 11/21/22 18:00 Influenza Type A (PCR) Positive (Neg) A* 11/21/22 18:00 Influenza Type B (PCR) Negative (Neg) 11/21/22 18:00 RSV (RT-PCR) Negative (Neg) 11/21/22 18:00 Impressions Chest X-Ray 11/21/22 18:08 SINGLE VIEW CHEST CLINICAL HISTORY: Generalized weakness. FINDINGS: An AP, portable, upright chest radiograph is compared to study dated 11/22/2021. The cardiomediastinal silhouette is unremarkable noting atherosclerotic calcification of the thoracic aorta. Emphysema and chronic interstitial thickening is similar to previous. Foci of parenchymal scarring are seen throughout both lungs, greatest at the lung bases. No airspace consolidation or large pleural effusion is identified. No pneumothorax is seen. The skeletal structures are osteopenic. The bony thorax is grossly intact. IMPRESSION: Emphysematous change with no acute cardiopulmonary abnormality identified. ACT 112: Negative or not required by law. Electronically signed by: Liban Cavanaugh M.D. 11/21/2022 6:56 PM
[2022-11-23] MEDS ORDERED: POTASSIUM CHLORIDE CRTAB 20 MEQ TABCR PO STA (15:53)
[2022-11-23] MEDS: ASPIRIN 81 MG ECTAB PO SCH (21:26)
[2022-11-24] MEDS: ALBUT/IPRATROP 3MG/0.5MG NEB 3 ML VIAL NEB SCH ×3 (02:25→10:37)
[2022-11-24] MEDS: LEVOTHYROXINE SODIUM 125 MCG TABLET PO SCH (05:30)
[2022-11-24] MEDS: PANTOprazole 40 MG TAB PO SCH (08:06)
[2022-11-24] MEDS: CYANOCOBALAMIN (B-12) 100 MCG TABLET PO SCH (08:07)
[2022-11-24] MEDS: METOPROLOL SUCC 50MG EXT REL TAB PO SCH (08:07)
[2022-11-24] MEDS: ADVANCED PROBIOTIC 1250 MG CAPSULE PO SCH (08:07)
[2022-11-24] MEDS: lisinopril 10 MG TAB PO SCH (08:07)
[2022-11-24] MEDS: FLUoxetine HCL 20 MG CAP PO SCH (08:08)
[2022-11-24] MEDS: ATORVASTATIN 40 MG TAB PO SCH (08:08)
[2022-11-24] MEDS: INSULIN ASPART PER UNIT SC SCH ×2 (08:09→13:05)
[2022-11-24] MEDS: HEPARIN SOD 5,000 UNIT/0.5 ML VIAL SQ SCH (08:09)
[2022-11-24] MEDS: LANTUS PER UNIT CHARGE SQ SCH (08:10)
[2022-11-24] MEDS: OSELTAMIVIR PHOSPHATE SUSP 30 MG/5 ML UDP PO SCH (08:14)
[2022-11-24] MEDS: MAGNESIUM SULFATE / D5W 1 GM/100 ML BAG IV SCH ×2 (08:45→10:25)
[2022-11-24] MEDS ORDERED: POTASSIUM CHLORIDE PWD 20 MEQ PACK PO SCH (09:00)
[2022-11-24 09:26] LABS: Basophils # (auto) 0.02 K/uL (0-0.2); Basophils % (auto) 0.3 %; Eosinophils # (auto) 0.01 K/uL (0-0.50); Eosinophils % (auto) 0.2 %; Hemoglobin 15.8 g/dl (12.0-16.0); Immature Granulocytes # (auto) 0.01 K/uL (0.00-0.02); Immature Granulocytes % (auto) 0.2 %; Lymphocytes # (auto) 0.97 K/uL (1.2-3.4); Lymphocytes % (auto) 15.2 %; Mean Corpuscular Hemoglobin 34.6 pg (25.0-34.0); Mean Corpuscular Hgb Conc 35.1 g/dL (32.0-36.0); Mean Corpuscular Volume 98.5 fL (80.0-100.0); Mean Platelet Volume 10.2 fL (9.4-12.3); Monocytes # (auto) 0.41 K/uL (0.24-0.82); Monocytes % (auto) 6.4 %; Neutrophils # (auto) 4.97 K/uL (1.4-6.5); Neutrophils % (auto) 77.7 %; Platelet Count 161 K/uL (130-400); RDW Standard Deviation 46.5 fL (36.4-46.3); Red Blood Count 4.57 M/uL (3.93-5.22); White Blood Count 6.39 K/ul (4.8-10.8)
[2022-11-24 09:58] LABS: BUN Creatinine Ratio 19.3 (10-20); Calcium 9.2 mg/dl (8.5-10.1); Creatinine Clr Calc Pharmacy 32.8 ml/min; Est GFR (African American) 51.9 ml/min; Est GFR (Non-African American) 44.7 ml/min; Magnesium 1.7 mg/dl (1.7-2.4); Potassium 3.7 mmol/L (3.5-5.1)
[2022-11-24] MEDS ORDERED: levoFLOXacin 500 MG TAB PO ONE (11:00)
--- NOTE | 2022-11-24 14:20 | Discharge Summary ---
Date of Service November 24, 2022 Admission HPI Per Admitting Provider 82-year-old lady with PMH of T2DM, HLD, gout, CKD stage III, chronic rhinitis, PVD, abdominal aortic ectasia, HTN, esophageal reflux, IBS, vitamin D deficiency, tobacco use disorder, chronic depression presented to the ED 1/2 with complaint of not feeling good for 3 to 4 days prior to arrival. Patient reports not feeling good since last few days, is sick at stomach with some belly discomfort, no vomiting, becoming weak and easily fatigable, has no appetite, wanted to do nothing but just lay around lately, cough with yellow sputum production, fever, denies any swallowing issues, associated with headache/sore throat/dizziness/lightheadedness. Patient also reports diarrhea since last 2 to 3 days. Patient denies chest pain or palpitation. Patient denies any pain or burning with passing urine. Patient has smoking history [pack years 48], denies use of alcohol or recreational drugs. DNR/DNI per my discussion with the patient and her daughter You at bedside, plan of care was also discussed with them. Family history positive for heart disorder and hypertension in mother and neurological disorder in father. Medications were reviewed with patient's daughter at bedside. Admission Exam Per Admitting Provider GENERAL: Alert and oriented x3. NAD, on 2 L NC O2. Appears ill/weak/frail. HEENT: No pallor, no icterus. Pupils equal, round and reactive to light. Oral mucosa moist. NECK: No JVD, no neck masses. HEART: S1 and S2 heard. Regular rate and rhythm. No murmur, no gallop. RESPIRATORY SYSTEM: Normal AP diameter. No accessory muscle use. No wheezing, mid and basal crackles bilaterally. Abd m. use for breathing ABDOMEN: Soft, bowel sounds present, nontender, no distention. CENTRAL NERVOUS SYSTEM: No facial droop. Speech is clear. Obeys simple commands. Moves extremities. EXTREMITIES: No edema, no erythema seen. Principal Diagnosis Influenza A Emphysema Enteropathogenic E. coli Discharge Exam General Appearance:Moderately built and nourished, no apparent distress Head: normocephalic, Atraumatic Eyes: normal inspection, EOMI Neck: supple, Trachea midline Respiratory/Chest: Normal breath sounds, CTA, No accessory muscle use Cardiovascular: S1, S2, No murmur Abdomen/GI:Soft, Non tender, Bowel sounds present Extremities/Musculoskeletal:normal inspection, no edema Neurologic/Psych:AAO, grossly no focal neurological deficits, Mild hearing impairment Skin: normal color, warm Discharge Data Allergies Allergy/AdvReac Type Severity Reaction Status Date / Time indomethacin Allergy Unknown Rash Verified 11/21/22 22:13 paroxetine Allergy Unknown Rash Verified 11/21/22 22:13 cyclobenzaprine AdvReac Unknown Vomiting Verified 11/21/22 22:13 Macrolide Antibiotics AdvReac Unknown SKIN Verified 11/21/22 22:13 REDDENED, BURNING metformin AdvReac Unknown Diarrhea Verified 11/21/22 22:13 NSAIDS (Non-Steroidal AdvReac Unknown PT HAS Verified 11/21/22 22:13 Anti-Inflamma KIDNEY DISEASE - REASON THIS IS LISTED rofecoxib AdvReac Unknown BLACK Verified 11/21/22 22:13 STOOLS Sulfa (Sulfonamide AdvReac Unknown Headache Verified 11/21/22 22:13 Antibiotics) Sympathomimetics Allergy Unknown PT Uncoded 11/21/22 22:13 DAUGHTER DOES NOT RECALL THIS ONE Consultations 11/21/22 20:29 ED Decision to Admit Stat Hospital Course (1) Influenza A: (2) Emphysema lung: (3) Enteropathogenic Escherichia coli infection: Plan Patient presented to the ED with complaint of generalized weakness 4 days prior to admission. She complained of cough, muscle aches and tiredness. On presentation to the ED, she was normotensive; was placed on 2 L of oxygen by nasal cannula. She was started on Rocephin and doxycycline for possible pneumonia. Patient was found to have influenza A. Chest x-ray was done which showed emphysematous changes without any consolidation. Patient also had multiple episode of diarrhea. Stool study was positive for enteropathogenic E. coli. Antibiotics were switched to azithromycin; reported redness and burning sensation around her mouth. Azithromycin was changed to levofloxacin. Patient continued to improve during the hospitalization. Her oxygen requirement was weaned off to room air. The frequency of loose stool also decreased. Two-step oxygen assessment was done; patient did not require any supplemental oxygen at rest or on exertion. She was given prescription for Tamiflu for 3 more days. She was also started on Spiriva for emphysema. Patient is being scheduled to see pulmonology as outpatient for long-term management of possible COPD. Pat ient to follow-up with primary care doctor next week. Total Time Total Time Spent Total Time Spent (In Minutes): 40 Total Time Includes: Examination of the Patient, Discharge Planning, Medication Reconciliation, Communication With Other Providers and Other Discharge Plan Discharge Items Patient Disposition: Home - Self-Care Reason For Visit: FLU LIKE SYMPTOMS, WEAKNESS Discharge Diagnosis: Influenza A COPD exacerbation Activity: Resume your previous activity Non-emergency contact: Primary Care Provider Call non-emergency contact if: you have any medication questions and your symptoms worsen Follow-up/Referrals: Elio Morrissey MD [Primary Care Provider] - (Date & Time 12/01/2022 2:00 PM Provider Mayelin Estrella MD [facility] ) Diet: Regular Addtl Attending Provider Instructions: You were admitted to the hospital with influenza A. You were treated with Tamiflu while you were in the hospital. You are prescribed 3 more days of Tamiflu 30 mg twice daily. You were also found to have diarrhea secondary to enteropathogenic E. coli. You received treatment with antibiotic during your hospitalization. Please continue to keep yourself hydrated. ou are started on Spiriva to be used daily for management of emphysema. We need to obtain pulmonary referral from your primary care doctor. An appointment will be set up for you to see your primary care doctor next week. Pending Studies at Discharge: No Stand-Alone Forms: My [facility], Smoking Cessation Medications and DC Order Prescriptions: New oseltamivir [Tamiflu] 6 mg/mL Suspension For Reconstitution 30 mg PO BID 3 Days Qty: 30 0RF Spiriva Respimat 2.5 mcg/actuation mist 2 inh inhalation DAILY Qty: 4 0RF Continued fluoxetine [Prozac] 40 mg Capsule 40 mg PO QAM atorvastatin 40 mg Tablet 40 mg PO QAM cyanocobalamin (vitamin B-12) [Vitamin B-12] 100 mcg Tablet 400 mcg PO DAILY lisinopril 20 mg Tablet 10 mg PO QAM glipizide 10 mg Tablet 10 mg PO BID Rx Instructions: TAKE PRIOR TO MEALS allopurinol 100 mg Tablet 200 mg PO QAM omeprazole 40 mg Capsule,Delayed Release(Dr/Ec) 40 mg PO QAM aspirin 81 mg Tablet,Delayed Release (Dr/Ec) 81 mg PO HS meclizine 25 mg Tablet 25 mg PO TID PRN (Reason: Dizziness) Label Comments: HAVEN'T TAKEN IN AWHILE levothyroxine 125 mcg Tablet 125 mcg PO DAILYBB calcium carbonate 500 mg calcium (1,250 mg) Tablet,Chewable 500 mg PO QAM furosemide [Lasix] 20 mg Tablet 20 mg PO 2XWK Rx Instructions: 09/30/22 : TAKE ONE TABLET ON MONDAY AND MONDAY IN AM fluticasone propionate 50 mcg/actuation [place],Suspension 2 spray INTRANASAL UD PRN (Reason: Nasal Congestion) loratadine [Claritin] 10 mg Tablet 10 mg PO QAM cholecalciferol (vitamin D3) [Vitamin D3] 25 mcg (1,000 unit) Tablet 12.5 mcg PO 3XWK Rx Instructions: TAKES MON, MON, MON. Mag 64 64 mg Tablet,Delayed Release (Dr/Ec) 64 mg PO BID metoprolol succinate 100 mg tablet extended release 24 hr 100 mg PO DAILY albuterol sulfate 90 mcg/actuation HFA aerosol inhaler 2 inh inhalation Q6H PRN (Reason: Shortness Of Breath Or Wheezing) dicyclomine 10 mg capsule 10 mg PO QID PRN (Reason: Cramps) ferrous sulfate 325 mg (65 mg iron) Tablet 325 mg PO BID Rx Instructions: AM & HS Discharge Orders: Discharge Order (Routine); Ordered 11/24/22 Ordered By: Dean Rahman Admission Data Admit Date/Time: 11/21/22 20:50 Attending Provider: Dean Rahman Admit Provider: Rico Smith Primary Care Provider: Elio Morrissey Other Providers: Rico Smith Other Interventions: Discharge Summary Assessment (RN) Last Done: 11/24/22 10:18
[2022-11-25] MEDS ORDERED: levoFLOXacin 250 MG TABLET PO ONE (11:00)
[2022-11-25] MEDS ORDERED: levoFLOXacin 250 MG TABLET PO SCH (11:00)
== END 2022-11-24 14:28 | disposition home or self-care (01) | DRG 194 ==
LOC: ED 17:51 → 2W 20:50 → SUATTDRO 20:50 → 2W 22:34

== ENCOUNTER 2024-07-14 16:05 | Inpatient (IN) ==
--- OUTSIDE RECORDS SUMMARY | 2024-07-14 16:12 | External Medical Summary | Summary of Care ---
Author Name Unknown Organization [facility] Address [address] [place] [address] Phone [phone] Care Team Providers Care Supervisor Incising Name Role Phone Ana M Morrissey MD Primary Care Provider [phone] Reason for Visit * Reason Comments eRx-Medication Refill Encounter Details Date Type Department Care Team (Late st Contact Info) Description 07/12/2024 Refill [facility] [address] [place] [address] Ana M Morrissey MD [address] [place] [address] HTN, goal below 140/90 Allergies Active Allergy Reactions Criticality Noted Date Comments Azithromycin Edema face/lips/tongue High 12/01/2022 Peeling skin Cyclobenzaprine 11/25/1999 flexeril, sick Cyclobenzaprine 01/19/2022 Other reaction(s): Vomiting Indomethacin 01/19/2022 Other reaction(s): Rash Nitrofurantoin Monohydrate Macrocrystals Rash Medium 10/27/2009 Skin got red and burned Metformin Diarrhea Low 01/18/2011 Nsaids 11/25/1999 indocin, rash Paroxetine 01/28/2000 paxil rash Rofecoxib 09/18/2001 black stools Sulfa Antibiotics 11/25/1999 bactrim, headache Sympathomimetics 07/10/2000 Oseltamivir 12/01/2022 documented as of this encounter (statuses as of 07/12/2024) Medications Medication Sig Dispensed Refills Start Date End Date Status ASPIRIN EC 81 MG PO TBECIndications: takes at night Take by mouth at bedtime. This med should NOT be Crushed or Chewed 0 7 Active VITAMIN B 12 100 MCG PO LOZG Takes 400 mcg daily OTC 4 Lozenge 0 1 Active Bluetector SYSTEM W/DEVICE KITIndications:D M type 2, goal A1c below 7 Use up to twicw times a day as directed Patient old kit is not working DX DM 1 Kit 5 2 Active loratadine (CLARITIN) 10 MG TabletIndication s:PND (post-nasal drip) Take 1 Tab by mouth daily. 30 Tab 5 6 Active Calcium Carbonate Antacid 500 MG Oral Tablet Chewable (Tums) Take by mouth 1 Tablet in the morning. 90 Tablet 3 2 Active Mucinex DM 30-600 MG Oral Tablet Extended Release 12 Hour Take 1 Tablet by mouth 2 times a day as needed for Cough. Take with plenty of water. Do not cut, crush or chew 40 Tablet 2 3 Active Fluticasone-Umec lidin-Vilant 100-62.5-25 MCG/ACT Aerosol Powder Breath Activated (Trelegy Ellipta)Indicati ons:Chronic depression Inhale 1 Puff by mouth in the morning. Please rinse mouth out after use.. 180 Blister Dosing Unit 2 3 Active polyethylene glycol 3350 119 gram OR POWD Take 119 g by mouth once. Active Trulicity 0.75 MG/0.5ML Subcutaneous Solution Pen-injector (Dulaglutide) INJECT 0.75 MG SUBCUTANEOUSLY ONE TIME PER WEEK 6 mL 3 3 Active Donepezil HCl 10 MG Oral Tablet (Aricept) Take 1 Tablet by mouth daily with breakfast. 90 Tablet 3 3 Active Ferrous Sulfate 325 (65 Fe) MG Oral Tablet (Feosol)Indicati ons:Iron deficiency TAKE 1 TABLET BY MOUTH IN THE MORNING AND BEFORE BEDTIME 180 Tablet 2 4 Active Additional Information Patient taking differently: 1 Tablet HS, Reported on 03/01/2024 Vitamin D3 25 MCG (1000 UT) Oral TabletIndication s:Vitamin D deficiency TAKE 1/2 TABLET BY MOUTH THREE TIMES A WEEK 12 Tablet 5 4 Active Dicyclomine HCl 10 MG Oral Capsule (Bentyl) TAKE 1 CAPSULE BY MOUTH EVERY DAY IN THE MORNING AND AT BEDTIME 60 Capsule 2 4 Active Magnesium Chloride 64 MG Oral Tablet Delayed Release (Mag64) TAKE 1 TABLET BY MOUTH TWICE A DAY 180 Tablet 2 4 Active busPIRone HCl 5 MG Oral Tablet (Buspar)Indicati ons:Anxiety Take 1 Tablet by mouth in the morning and 1 Tablet before bedtime. 180 Tablet 4 Active Albuterol Sulfate HFA 108 (90 Base) MCG/ACT Inhalation Aerosol Solution Inhale 2 Puffs by mouth every 6 hours as needed for Cough, Shortness of Breath or Wheezing. 18 g 1 4 Active Meclizine HCl 25 MG Oral Tablet Chewable Take 1 Tablet by mouth 3 times a day as needed for Dizziness. 30 Tablet 4 Active Fluticasone Propionate 50 MCG/ACT Nasal Suspension (Flonase)Indicat ions:Dysfunction of eustachian tube,Chronic rhinitis Administer 2 Sprays into each nostril in the morning. 16 g 5 4 Active LancetsIndicatio ns:DM type 2, not at goal (HCC) Use once daily for blood sugar check 100 Each 3 4 Active Furosemide 20 MG Oral Tablet (Lasix)Indicatio ns:Hypertensive kidney disease with stage 3a chronic kidney disease (HCC) TAKE 1 TABLET BY MOUTH every Monday and Monday and DAILY IF NEEDED FOR EDEMA OR WEIGHT GAIN GREATER THAN 3 POUNDS IN 2 DAYS 45 Tablet 3 4 Active buPROPion HCl 75 MG Oral Tablet (Wellbutrin)Alisson cations:Chronic depression TAKE 1 TABLET BY MOUTH IN THE MORNING AND 1 TABLET BEFORE BEDTIME. 1. 180 Tablet 3 4 Active LORazepam 1 MG Oral Tablet (Ativan)Indicati ons:Adjustment disorder with anxiety Take 1 Tablet by mouth 2 times a day as needed for Anxiety. 60 Tablet 4 Active ReliOn Premier Test In Vitro Strip (Glucose Blood)Indication s:DM type 2, not at goal (HCC) Test once daily E11.9 100 Strip 3 4 Active glipiZIDE 10 MG Oral Tablet (Glucotrol) TAKE 1 TABLET BY MOUTH TWICE A DAY BEFORE MEALS 180 Tablet 1 4 Active Levothyroxine Sodium 125 MCG Oral Tablet (Levoxyl)Indicat ions:Hypothyroid ism, unspecified type TAKE 1 TABLET BY MOUTH ONCE DAILY FIRST DAY IN THE MORNING AT LEAST 30 MINUTES PRIOR TO BREAKFAST OR OTHER MEDS 90 Tablet 1 4 Active Atorvastatin Calcium 40 MG Oral Tablet (Lipitor) TAKE 1 TABLET BY MOUTH EVERY DAY IN THE MORNING 90 Tablet 1 4 Active Allopurinol 100 MG Oral Tablet (Zyloprim)Indica tions:Stage 3b chronic kidney disease (HCC),Gout, unspecified cause, unspecified chronicity, unspecified site TAKE 2 TABLETS BY MOUTH IN THE MORNING 180 Tablet 1 4 Active Lisinopril 20 MG Oral Tablet (Prinivil) TAKE 1 TABLET BY MOUTH EVERY DAY IN THE MORNING 90 Tablet 2 4 Active Escitalopram Oxalate 20 MG Oral Tablet (Lexapro)Indicat ions:Chronic depression Take 1 Tablet by mouth in the morning. 90 Tablet 1 4 Active Omeprazole 40 MG Oral Capsule Delayed Release (PriLOSEC) TAKE 1 CAPSULE BY MOUTH EVERY DAY IN THE MORNING 90 Capsule 2 4 Active Metoprolol Succinate ER 100 MG Oral Tablet Extended Release 24 Hour (toPROL XL)Indications:H TN, goal below 140/90 TAKE 1 TABLET BY MOUTH EVERY DAY IN THE MORNING 90 Tablet 2 4 Active Omeprazole 40 MG Oral Capsule Delayed Release (PriLOSEC) TAKE 1 CAPSULE BY MOUTH EVERY DAY IN THE MORNING 90 Capsule 2 3 07/12/20 24 Discontinued Metoprolol Succinate ER 100 MG Oral Tablet Extended Release 24 Hour (toPROL XL)Indications:H TN, goal below 140/90 TAKE 1 TABLET BY MOUTH EVERY DAY IN THE MORNING 90 Tablet 2 3 07/12/20 24 Discontinued documented as of this encounter (statuses as of 07/12/2024) Active Problems Problem Noted Date Diagnosed Date Dementia, vascular, mixed 02/21/2024 Other emphysema 02/21/2024 Severe episode of recurrent major depressive disorder, without psychotic features 02/21/2024 Acute embolism and thrombosi s of unspecified deep veins of left lower extremity 02/21/2024 Stage 3b chronic kidney disease 02/21/2024 COPD exacerbation 12/01/2022 Chronic obstructive pulmonary disease 12/01/2022 Moderate episode of recurrent major depressive d isorder 09/23/2022 Hypertensive kidney disease with stage 3a chronic kidney disease 11/23/2020 Type 2 diabetes mellitus with peripheral artery disease 02/12/2019 Diabetes mellitus with stage 3 chronic kidney di sease 07/25/2018 Chronic depression 06/30/2017 Type 2 diabetes mellitus wit h hemoglobin A1c goal of less than 8.0% 03/25/2015 Overview: ICD-10 update of inactive term Spastic bladder 03/25/2015 HTN, goal below 140/90 01/19/2015 Abdominal aortic ectasia 01/08/2015 Overview: 2010 MRI 2.8 cm. Chronic rhinitis 05/05/2014 Tobacco use disorder 05/05/2014 Granuloma annulare 12/27/2012 Left knee DJD 11/01/2012 Gout 11/01/2012 Vitamin D deficiency 04/27/2012 Peripheral vascular disease 06/16/2011 DYSLIPIDEMIA, GOAL LDL BELOW 100 10/29/2009 Overview: Per Lipid Taxonomy. DM TYPE 2 CAUSING RENAL DZ 09/17/2009 Overview: Per Diabetes Taxonomy. Kidney disease, chronic, stage III (GFR 30-59 ml /min) 12/21/2007 Overview: Based on labs from 11/22/07 Hypothyroidism 03/27/2001 Irritable bowel syndrome 12/29/2000 Esophageal reflux 05/01/2000 Diaphragmatic hernia documented as of this encounter (statuses as of 07/12/2024) Resolved Problems Problem Noted Date Diagnosed Date Resolved Date Major depressive disorder, r ecurrent, unspecified 12/01/2020 12/01/2022 Hypertensive kidney disease with chronic kidney disease stage III 02/12/2019 12/01/2022 Asthma with severity to be determined 06/30/2017 01/17/2019 Viral labyrinthitis 05/05/2014 01/17/20 19 Vertigo 05/05/2014 02/12/2019 Dysfunction of eustachian tube 05/05/2014 01/17/2019 Metatarsalgia of right foot 11/01/2012 02/12/2019 Pain in limb 11/01/2012 01/02/2018 HTN, goal below 140/80 07/09/201201/19 Overview: Per HTN Protocol #27. HTN, goal below 130/80 10/21/200907/12 Benign neoplasm of colon 10/19/2009 Overview: adenomatous/repeat colonoscopy in 3 yrs Type 2 diabetes mellitus wit h hemoglobin A1c goal of less than 7.0% 09/17/2009 03/25/2015 Overview: Per Diabetes Taxonomy. ICD-10 update of inactive term DM type 2 causing renal disease 04/19/2009 09/17/2009 Overview: Per Diabetes Taxonomy. ADVANCE DIRECTIVE INFORMATION 12/13/2006 01/17/2019 Overview: on file per pt. Type 2 diabetes mellitus wit h hemoglobin A1c goal of less than 7.0% 08/07/2003 09/17/2009 Overview: Per Diabetes Taxonomy. ICD-10 update of inactive term Menopause 08/27/2002 01/02/2018 Mixed dyslipidemia 03/22/2001 9 Overview: Per Lipid Taxonomy. Tobacco use disorder 03/22/2001 014 ADJ DISORDER W/DEPRES MOOD 05/01/2000 0 01/02/2018 HYPERTENSION NOS 10/13/2009 Overview: Modified per HTN protocol #16. DIVERTICULOSIS OF COLON 12/21 Overview: Colonoscopy 04/20/06--diverticulosis and sessile serrated adenoma--repeat 1 year Allergic rhinitis 02/12/2019 documented as of this encounter (statuses as of 07/12/2024) Immunizations Name Administration Dates Next Due COVID-19 mRNA, LNP-s, No Pre serve, 2-Dose Series (Kanari) 02/05/2022,02/23/2021,02/02/2021 COVID-19, MRNA-LNP, 23-24, P F, 50 MCG/0.5 mL, 12 YRS AND ABOVE, IM (MODERNA-Spikevax) 09/06/2023 Pneumococcal Conjugate Vacc, 13 Valent (Prevnar) 11/30/2015 Pneumococcal Conjugate Vacci ne, 20-valent (Uocortm33) 09/06/2023 Pneumococcal Polysaccharide PPV23 (Pneumovax) 03/26/2008 RSV Vac., Recomb, Adjuvant, PF,0.5 Ml (Arexvy) 07/19/2023 Season Influenza, Quad, PF, Adjuvanted, 65+ Yrs, IM (FLUAD) 07/19/2023,07/22/2020 07/22/2021 Seasonal Influenza, PF, 6 M & above, IM , (FluLaval or Fluzone) 09/20/2019,09/11/2018,09/03/2017 09/20/2020 Seasonal Influenza, Quadriva lent Hd (Fluzone Hd) 08/12/2021 Seasonal Influenza, Quadriva lent, No Preserve, IM 08/24/2016 08/24/2017 Seasonal Influenza, Split, I IV3, With Preserve, Inj 07/28/2015,08/04/2014,09/20/2013,07/22,09/21/2011,08/25/2010,09/08/20 09,09/22/2008,09/26/2007,09/21/2006 Seasonal Influenza, Trivalen t, Adjuvanted, 65+ yrs 08/23/2022 TD - Tetanus/Diptheria (ADULT) 11/22/2007 TDAP (age 10 and older)(Boostrix) 01/02/2018 Varicella Zoster Vaccine (Adult) 03/07/2015 Zoster Vaccine Recombinant (Shingrix) 05/02/2021 ,12/01/2020 documented as of this encounter Social History Tobacco Use Types Packs/Day Years Used Date Smoking Tobacco: Every Day Cigarettes 1.8 56.6 Started: 1967 Smokeless Tobacco: Never Comments:Patient currently s tates they want to quit smoking in order to get into assisted living Alcohol Use Standard Drinks/Week Comments No 0 (1 standard drink = 0.6 oz pur e alcohol) PHQ-2 Answer Date Recorded PHQ Adult Total Score 24 03/24/2023 Hunger Vital Sign Answer Date Recorded Within the past 12 months, y ou worried that your food would run out before you got the money to buy more. Never true 11/25/19 Within the past 12 months, t he food you bought just didn't last and you didn't have money to get more. Never true 11/25/2022 Utilities Answer Date Recorded Do you have trouble paying y our heating, water, or electric bill? (Adult - for ages 18 years and over) Not on file 05/07/2024 Is your family able to pay t he heat, water, or electric bill? (Household - for ages 0-17 years) Not on file 05/07/2024 Does your family have access to good internet? (Household - for ages 0-17 years) Not on file 05/07/2024 Social Connections Answer Date Recorded How often do you feel lonely or isolated from those around you? (Adult - for ages 18 years and over) Not on file 05/07/2024 Sex and Gender Information Value Date Recorded Sex Assigned at Female 08/19/2019 9:32 AM EDT Gender Identity Female 08/19/2019 9:32 AM EDT Sexual Orientation Straight 08/19/2019 9: 32 AM EDT Job Start Date Occupation Industry Not on file Not on file Not on file documented as of this encounter Miscellaneous Notes * Telephone Encounter - Jacqueline Madrid [facility] - 07/12/2024 7:51 AM EDTSigned Prescriptions: Disp Refills Omeprazole 40 MG Oral Capsule Delayed Rele*90 Cap*2 Sig: TAKE 1 CAPSULE BY MOUTH EVERY DAY IN THE MORNINGAuthorizing Provider: ANA M MORRISSEY User: JACQUELINE MADRID Metoprolol Succinate ER 100 MG Oral Tablet*90 Tab*2 Sig: TAKE 1 TABLET BY MOUTH EVERY DAYIN THE MORNINGAuthorizing Provider: ANA M MORRISSEY User: JACQUELINE MADRID documented in this encounter Plan of Treatment Upcoming Encounters Date Type Department Care Team (Late st Contact Info) Description 08/07/2024 3:00 PM EDT Office Visit Gastroenterology, [facility] [address] [facility] [place] [address] Karin Hawkins CRNP [address] [facility] [place] [address] 08/15/2024 9:30 AM EDT Office Visit Audiology [facility] [address] [facility] [place] [address] Keely Mcarthur Au.D. [address] [facility] [place] [address] 08/15/2024 10:15 AM EDT Office Visit Otolaryngology [facility] [address] [facility] [place] [address] Genny Corona PA-C [facility] [address] 08/15/2024 2:00 PM EDT Office Visit Nephrology, [facility] [address] [place] [address] Nikki Barcenas PA-C [address] [facility] [place] [address] 09/27/2024 10:00 AM EST Office Visit Neurology [facility] [address] [facility] [place] [address] [facility]on [facility]NP [address] [facility] [address] 03/28/2025 10:00 AM EDT Office Visit Neurology [facility] [address] [place] [address] Stephanie Mcfadden, DO [address] [place] [address] Scheduled Procedures Name Priority Associated Diagnoses Date/Ti me COLONOSCOPY FLEXIBLE PROXIMAL DIAGNOSTIC Recall History of colon polyps Health Maintenance Due Date Last Done Comments DISCUSS TOBACCO CESSATION (Capri FARNKEL TO SMARTSET #7125) 1940 Adult Wellness Visit 06/11/2020 06/11/2019 DXA Scan 06/13/2023 06/13/2016, 04/20, 04/29/2011, Additional history exists COVID-19 Vaccine (2022-2 4 season) 2024 09/06/2023, 09/06/2022, 02/05/2022, Additional history exists Depression Monitoring 03/24/2024 03/24/2023 Influenza Vaccine (FLU shot) (#1) 2024 07/19/2023, 07/19/2023, 09/06/2022, Additional history exists TSH 11/22/2024 11/22/2023, 02/2022, 10/15/2021, Additional history exists O2 ASSESSMENT COMPLETED IN P AST YEAR FOR COPD 04/19/2025 04/19/2024 Zoster Vaccines Completed 05/02/2021, 11/20, 03/07/2015 documented as of this encounter Medical Devices Implanted Type Area Content Specialist Device Identifier Shelf Expiration Date Model / Serial / Lot Clip Quick 2.8mm 230cm - [id number] Implanted:Qty: 1 on 07/20/2022 by Jesus Massey MD at [facility]COPY [facility] [employer] 09/19/2024 HX-202UR.A / / [id number] Clip Quick 2.8mm 230cm - [id number] Implanted:Qty: 1 on 11/07/2022 by Sebastián Martinez MD at [facility]COPY [facility] Colon [employer] 03/19/2025 HX-202UR.A / / 25K Clip Quick 2.8mm 230cm - [id number] Implanted:Qty: 1 on 11/07/2022 by Sebastián Martinez MD at ENDOSCOPY [facility] [employer] 03/19/2025 HX-UR.A / / 25K Duraclip 16mm Xlg Repostn - [id number] Implanted:Qty: 1 on 11/07/2022 by Sebastián Martinez MD at ENDOSCOPY [facility] [employer] 09/16/2024 [id number] / / [id number] Duraclip 16mm Xlg Repostn - [id number] Implanted:Qty: 1 on 11/07/2022 by Sebastián Martinez MD at ENDOSCOPY [facility] [employer] 09/16/2024 [id number] / / [id number] Duraclip 16mm Xlg Repostn - [id number] Implanted:Qty: 1 on 11/07/2022 by Sebastián Martinez MD at ENDOSCOPY [facility] [employer] 09/16/2024 [id number] / / [id number] Duraclip 16mm Xlg Repostn - [id number] Implanted:Qty: 1 on 11/07/2022 by Sebastián Martinez MD at ENDOSCOPY [facility] [employer] 09/16/2024 [id number] / / [id number] Duraclip 16mm Xlg Repostn - [id number] Implanted:Qty: 1 on 11/07/2022 by Sebastián Martinez MD at ENDOSCOPY [facility] [employer] 09/16/2024 [id number] / / [id number] Duraclip 16mm Xlg Repostn - [id number] Implanted:Qty: 1 on 11/07/2022 by Sebastián Martinez MD at ENDOSCOPY [facility] [employer] 09/16/2024 [id number] / / [id number] Clip Quick 2.8mm 230cm - [id number] Implanted:Qty: 1 on 11/07/2022 by Sebastián Martinez MD at ENDOSCOPY [facility] [employer] 03/19/2025 HX-UR.A / / 25K Clip Quick 2.8mm 230cm - [id number] Implanted:Qty: 1 on 11/07/2022 by Sebastián Martinez MD at ENDOSCOPY [facility] Colon [employer] 03/19/2025 HX-UR.A / / [id number] documented as of this encounter Visit Diagnoses Diagnosis HTN, goal below 140/90 Unspecified essential hypertension documented in this encounter Care Teams Supervisor Incising Relationship Specialty Start Date End Date Ana M Morrissey MD [address] [place] [address] PCP - General 12/27/02 documented as of this encounter
--- OUTSIDE RECORDS SUMMARY | 2024-07-14 16:12 | External Medical Summary | Summary of Care ---
Author Name Unknown Organization [facility] Address [address] [place] [address] Phone [phone] Care Team Providers Care Hvac Technician Residential Name Role Phone Ana M Morrissey MD Primary Care Provider Reason for Visit * Reason Comments eRx-Medication Refill Encounter Details Date Type Department Care Team (Late st Contact Info) Description 07/05/2024 Refill [facility] [address] [place] [address] Ana M Morrissey MD [address] [place] [address] Allergies Active Allergy Reactions Criticality Noted Date [...] as of this encounter (statuses as of 07/07/2024) Medications Medication Sig Dispensed Refills Start Date End Date Status ASPIRIN EC 81 MG PO TBECIndications: takes at night Take by mouth at bedtime. This med should NOT be Crushed or Chewed 0 7 Active VITAMIN B 12 100 MCG PO LOZG Takes 400 mcg daily OTC 4 Lozenge 0 1 Active LivelyFeed SYSTEM W/DEVICE KITIndications:D M type 2, goal [...] Take 119 g by mouth once. Active Omeprazole 40 MG Oral Capsule Delayed Release (PriLOSEC) TAKE 1 CAPSULE BY MOUTH EVERY DAY IN THE MORNING 90 Capsule 2 3 Active Metoprolol Succinate ER 100 MG Oral Tablet Extended Release 24 Hour (toPROL XL)Indications:H TN, goal below 140/90 TAKE 1 TABLET BY MOUTH EVERY DAY IN THE MORNING 90 Tablet 2 3 Active Trulicity 0.75 MG/0.5ML Subcutaneous Solution Pen-injector [...] daily E11.9 100 Strip 3 4 Active Escitalopram Oxalate 20 MG Oral Tablet (Lexapro)Indicat ions:Chronic depression Take 1 Tablet by mouth in the morning. 90 Tablet 1 4 11/13/20 24 Active glipiZIDE 10 MG Oral Tablet (Glucotrol) [...] THE MORNING 90 Tablet 2 4 Active Lisinopril 20 MG Oral Tablet (Prinivil) TAKE 1 TABLET BY MOUTH EVERY DAY IN THE MORNING 90 Tablet 2 3 07/07/20 24 Discontinued documented as of this encounter (statuses as of 07/07/2024) Active Problems Problem Noted Date Diagnosed Date [...] as of this encounter (statuses as of 07/07/2024) Resolved Problems Problem Noted Date Diagnosed Date [...] as of this encounter (statuses as of 07/07/2024) Immunizations Name Administration Dates Next Due COVID-19 mRNA, LNP-s, No Pre serve, 2-Dose Series (Openbuilds) 02/05/2022,02/23/2021,02/02/2021 COVID-19, MRNA-LNP, 23-24, P F, 50 MCG/0.5 mL, 12 YRS AND ABOVE, IM (MODERNA-Spikevax) 09/06/2023 Pneumococcal Conjugate Vacc, 13 Valent (Prevnar) 11/30/2015 Pneumococcal Conjugate Vacci ne, 20-valent ([id number]) 09/06/2023 Pneumococcal Polysaccharide PPV23 (Pneumovax) 03/26/2008 RSV [...] money to buy more. Never true 11/25/19 23 Within the past 12 months, t he [...] encounter Miscellaneous Notes * Telephone Encounter - Constantine Stringer [facility] - 07/07/2024 6:40 AM EDTSigned Prescriptions: Disp Refills Lisinopril 20 MG Oral Tablet (Prinivil) 90 Tab*2 Sig: TAKE 1 TABLET BY MOUTH EVERY DAY IN THE MORNINGAuthorizing Provider: ANA M MORRISSEY User: CONSTANTINE STRINGER documented in this encounter Plan of Treatment Upcoming Encounters Date Type Department Care Team (Late st Contact Info) Description 07/09/2024 3:00 PM EDT Office Visit Audiology [facility] [address] [id number] Keely Mcarthur Au.D. [address] [address] 08/07/2024 3:00 PM EDT Office Visit Gastroenterology, [facility] [address] [address] Karin Hawkins CRNP 132 [facility] [place] [address] 08/15/2024 10:15 AM EDT Office Visit Otolaryngology [facility] [address] [place] [address] Genny Corona PA-C [address] [place] [address] 08/15/2024 2:00 PM EDT Office Visit Nephrology, [facility] [address] [place] [address] Nikki Barcenas PA-C 200 [facility] [place] [address] 09/27/2024 10:00 AM EST Office Visit Neurology [facility] [address] [place] [address] Jerrica Calderon CRNP [address] [place] [address] 03/28/2025 10:00 AM EDT Office Visit Neurology [facility] [address] [place] [address] Stephanie Mcfadden DO [address] [place] [address] Scheduled Procedures Name Priority Associated Diagnoses Date/Ti me COLONOSCOPY FLEXIBLE PROXIMAL DIAGNOSTIC Recall History of colon polyps Health Maintenance Due Date Last Done Comments DISCUSS TOBACCO CESSATION (Capri DOWELLER TO SMARTSET #2034) 1940 Adult Wellness Visit 06/11/2020 06/11/2019 DXA [...] this encounter Medical Devices Implanted Type Area News Videotape Editor Device Identifier Shelf Expiration Date Model / Serial / Lot Clip Quick 2.8mm 230cm - [id number] Implanted:Qty: 1 on 07/20/2022 by Jesus Massey MD at ENDOSCOPY [facility] Colon [employer] 09/19/2024 HX-UR.A / / [id number] Clip Quick 2.8mm 230cm - [id number] Implanted:Qty: 1 on 11/07/2022 by Sebastián Martinez MD at ENDOSCOPY [facility] Colon [employer] 03/19/2025 HX-UR.A / / 25K Clip Quick 2.8mm 230cm - [id number] Implanted:Qty: 1 on 11/07/2022 by Sebastián Martinez MD at ENDOSCOPY [facility] Colon [employer] 03/19/2025 HX-UR.A / / 25K Duraclip 16mm Xlg Repostn - [id number] Implanted:Qty: 1 on 11/07/2022 by Sebastián Martinez MD at ENDOSCOPY [facility] Colon [employer]IG[employer] 09/16/2024 [id number] / / [id number] Duraclip 16mm Xlg Repostn - [id number] Implanted:Qty: 1 on 11/07/2022 by Sebsatián Martinez MD at ENDOSCOPY [facility] Colon [employer] 09/16/2024 [id number] / / [id number] Duraclip 16mm Xlg Repostn - [id number] Implanted:Qty: 1 on 11/07/2022 by Sebastián Martinez MD at ENDOSCOPY [facility] Colon [employer] 09/16/2024 [id number] / / [id number] Duraclip 16mm Xlg Repostn - [id number] Implanted:Qty: 1 on 11/07/2022 by Sebastián Martinez MD at ENDOSCOPY [facility] Colon [employer] 09/16/2024 [id number] / / [id number] Duraclip 16mm Xlg Repostn - [id number] Implanted:Qty: 1 on 11/07/2022 by Sebastián Martinez MD at ENDOSCOPY [facility] Colon [employer] 09/16/2024 [id number] / / [id number] Duraclip 16mm Xlg Repostn - [id number] Implanted:Qty: 1 on 11/07/2022 by Sebastián Martinez MD at ENDOSCOPY [facility] Colon [employer] 09/16/2024 [id number] / / [id number] Clip Quick 2.8mm 230cm - [id number] Implanted:Qty: 1 on 11/07/2022 by Sebastián Martinez MD at ENDOSCOPY [facility] Colon [employer] 03/19/2025 HX-202UR.A / / 25K Clip Quick 2.8mm 230cm - [id number] Implanted:Qty: 1 on 11/07/2022 by Sebastián Martinez MD at ENDOSCOPY [facility] Colon [employer] 03/19/2025 HX-202UR.A / / [id number] documented as of this encounter Care Teams Hvac Technician Residential Relationship Specialty Start Date End Date Ana M Morrissey MD [address] [place] [address] PCP - General 12/27/02 documented as of this encounter
--- OUTSIDE RECORDS SUMMARY | 2024-07-14 16:12 | External Medical Summary | Summary of Care ---
Author Name Unknown Organization [facility] Address [address] [place] [address] Phone [phone] Care Team Providers Care Lap Machine Tender Name Role Phone Ana M Morrissey MD Primary Care Provider Reason for Visit * Reason Comments eRx-Medication Refill Encounter Details Date Type Department Care Team (Late st Contact Info) Description 07/12/2024 Refill [facility] [address] [place] [address] Ana M Morrissey MD [address] [place] [address] Chronic depression Allergies Active Allergy Reactions Criticality Noted Date [...] as of this encounter (statuses as of 07/14/2024) Medications Medication Sig Dispensed Refills Start Date End Date Status ASPIRIN EC 81 MG PO TBECIndications:t akes at night Take by mouth at bedtime. This med should NOT be Crushed or Chewed 0 7 Active VITAMIN B 12 100 MCG PO LOZG Takes 400 mcg daily OTC 4 Lozenge 0 1 Active [employer] ULTRA SYSTEM W/DEVICE KITIndications:DM type 2, goal A1c below 7 Use up to twicw times a day as directed Patient old kit is not working DX DM 1 Kit 5 2 Active loratadine (CLARITIN) 10 MG TabletIndications :PND (post-nasal drip) Take 1 Tab by mouth [...] or chew 40 Tablet 2 3 Active Fluticasone-Umecl idin-Vilant 100-62.5-25 MCG/ACT Aerosol Powder Breath Activated (Trelegy Ellipta)Indicatio ns:Chronic depression Inhale 1 Puff by mouth in [...] Sulfate 325 (65 Fe) MG Oral Tablet (Feosol)Indicatio ns:Iron deficiency TAKE 1 TABLET BY MOUTH IN THE MORNING AND BEFORE BEDTIME 180 Tablet 2 4 Active Additional Information Patient taking differently: 1 Tablet HS, Reported on 03/01/2024 Vitamin D3 25 MCG (1000 UT) Oral TabletIndications :Vitamin D deficiency TAKE 1/2 TABLET BY MOUTH [...] Active busPIRone HCl 5 MG Oral Tablet (Buspar)Indicatio ns:Anxiety Take 1 Tablet by mouth in the [...] Active Fluticasone Propionate 50 MCG/ACT Nasal Suspension (Flonase)Indicati ons:Dysfunction of eustachian tube,Chronic rhinitis Administer 2 Sprays into each nostril in the morning. 16 g 5 4 Active LancetsIndication s:DM type 2, not at goal ([facility]) Use once daily for blood sugar check 100 Each 3 4 Active Furosemide 20 MG Oral Tablet (Lasix)Indication s:Hypertensive kidney disease with stage 3a chronic kidney disease (HCC) TAKE 1 TABLET BY MOUTH every Monday and Monday and DAILY IF NEEDED FOR EDEMA OR WEIGHT GAIN GREATER THAN 3 POUNDS IN 2 DAYS 45 Tablet 3 4 Active buPROPion HCl 75 MG Oral Tablet (Wellbutrin)Indic ations:Chronic depression TAKE 1 TABLET BY MOUTH IN THE MORNING AND 1 TABLET BEFORE BEDTIME. 1. 180 Tablet 3 4 Active LORazepam 1 MG Oral Tablet (Ativan)Indicatio ns:Adjustment disorder with anxiety Take 1 Tablet by mouth 2 times a day as needed for Anxiety. 60 Tablet 4 Active ReliOn Premier Test In Vitro Strip (Glucose Blood)Indications :DM type 2, not at goal (HCC) Test once daily E11.9 100 Strip 3 4 Active glipiZIDE 10 MG Oral Tablet (Glucotrol) TAKE 1 TABLET BY MOUTH TWICE A DAY BEFORE MEALS 180 Tablet 1 4 Active Levothyroxine Sodium 125 MCG Oral Tablet (Levoxyl)Indicati ons:Hypothyroidis m, unspecified type TAKE 1 TABLET BY MOUTH ONCE DAILY FIRST DAY IN THE MORNING AT LEAST 30 MINUTES PRIOR TO BREAKFAST OR OTHER MEDS 90 Tablet 1 4 Active Atorvastatin Calcium 40 MG Oral Tablet (Lipitor) TAKE 1 TABLET BY MOUTH EVERY DAY IN THE MORNING 90 Tablet 1 4 Active Allopurinol 100 MG Oral Tablet (Zyloprim)Indicat ions:Stage 3b chronic kidney disease (HCC),Gout, unspecified cause, [...] Oral Tablet Extended Release 24 Hour (toPROL XL)Indications:HT N, goal below 140/90 TAKE 1 TABLET BY MOUTH EVERY DAY IN THE MORNING 90 Tablet 2 4 Active Escitalopram Oxalate 20 MG Oral Tablet (Lexapro)Indicati ons:Chronic depression Take 1 Tablet by mouth in the morning. 90 Tablet 1 4 Active Escitalopram Oxalate 20 MG Oral Tablet (Lexapro)Indicati ons:Chronic depression Take 1 Tablet by mouth in the morning. 90 Tablet 1 4 07/14/20 24 Discontinu ed(Refill) documented as of this encounter (statuses as of 07/14/2024) Active Problems Problem Noted Date Diagnosed Date [...] as of this encounter (statuses as of 07/14/2024) Resolved Problems Problem Noted Date Diagnosed Date [...] as of this encounter (statuses as of 07/14/2024) Immunizations Name Administration Dates Next Due COVID-19 mRNA, LNP-s, No Pre serve, 2-Dose Series (AnyPresence) 02/05/2022,02/23/2021,02/02/2021 COVID-19, MRNA-LNP, 23-24, P F, 50 MCG/0.5 mL, 12 YRS AND ABOVE, IM (MODERNA-Spikevax) 09/06/2023 Pneumococcal Conjugate Vacc, 13 Valent (Prevnar) 11/30/2015 Pneumococcal Conjugate Vacci ne, 20-valent ([id number]) 09/06/2023 Pneumococcal Polysaccharide PPV23 (Pneumovax) 03/26/2008 RSV [...] encounter Miscellaneous Notes * Telephone Encounter - Endy Pena [facility] - 07/14/2024 11:26 AM EDTSigned Prescriptions: Disp Refills Escitalopram Oxalate 20 MG Oral Tablet (Le*90 Tab*1 Sig: Take 1 Tablet by mouth in the morning.Authorizing Provider: ANA M MORRISSEY User: ENDY PENA Prescriptions: Disp Refills Escitalopram Oxalate 10 MG Oral Tablet (Le*90 Tab*1 Sig: TAKE 1 TABLET BY MOUTH EVERY DAYRefused By: ENDY PENA for Refusal: Dose needs clarificationReason for Refusal Comment: change to 20mg * Telephone Encounter - Endy Pena [facility] - 07/14/2024 11:23 AM EDT Change in pharmacy to [facility] malena Pena [facility] Clinical Pharmacist Telepharmacy [phone] 07/14/2024 11:24 AM documented in this encounter Plan of Treatment Upcoming Encounters Date Type Department Care Team (Late st Contact Info) Description 08/07/2024 3:00 PM EDT Office Visit Gastroenterology, [facility] [address] [place] [address] Karin Hawkins CRNP [address] [place] [address] 08/15/2024 9:30 AM EDT Office Visit Audiology [facility] [address] [place] [address] Keely Mcarthur Au.D. [address] [place] [address] 08/15/2024 10:15 AM EDT Office Visit Otolaryngology [facility] [address] [place] [address] Genny Corona PA-C [address] [place] [address] 08/15/2024 2:00 PM EDT Office Visit Nephrology, [facility] [address] [place] [address] Nikki Barcenas PA-C [address] [place] [address] 09/27/2024 10:00 AM EST Office Visit Neurology [facility] [address] [place] [address] Jer[facility]on [facility] [address] [facility] [address] 03/28/2025 10:00 AM EDT Office Visit Neurology [address] [place] [address] [facility] [place] [address] Stephanie Mcfadden, DO [address] [place] [address] Scheduled Procedures Name Priority Associated Diagnoses Date/Ti me COLONOSCOPY FLEXIBLE PROXIMAL DIAGNOSTIC Recall History of colon polyps Health Maintenance Due Date Last Done Comments DISCUSS TOBACCO CESSATION (R EFER TO SMARTSET #5699) 1940 Adult Wellness Visit 06/11/2020 06/11/2019 DXA Scan 06/13/2023 06/13/2016, 04/20, 04/29/2011, Additional history exists COVID-19 Vaccine (2022-12 4 season) 2024 09/06/2023, 09/06/2022, 02/05/2022, Additional history exists Depression Monitoring 03/24/2024 03/24/2023 Influenza Vaccine (FLU shot) (#1) 2024 07/19/2023, 07/19/2023, 09/06/2022, Additional history exists TSH 11/22/2024 11/22/2023, 02/2022, 10/15/2021, Additional history exists O2 ASSESSMENT COMPLETED IN P AST YEAR FOR COPD 04/19/2025 04/19/2024 Zoster Vaccines Completed 05/02/2021, 11/20, 03/07/2015 documented as of this encounter Medical Devices Implanted Type Area It Disaster Recovery Manager Device Identifier Shelf Expiration Date Model / Serial / Lot Clip Quick 2.8mm 230cm - [id number] Implanted:Qty: 1 on 07/20/2022 by Jesus Massey MD at ENDOSCOPY [facility] Colon [employer] 09/19/2024 HX-UR.A / / [id number] Clip Quick 2.8mm 230cm - [id number] Implanted:Qty: 1 on 11/07/2022 by Sebastián Martinez MD at ENDOSCOPY [facility] Colon [employer] 03/19/2025 HX-UR.A / / 25K Clip Quick 2.8mm 230cm - [id number] Implanted:Qty: 1 on 11/07/2022 by Sebastián Martinez MD at ENDOSCOPY [facility] [employer] 03/19/2025 HX-UR.A / / 25K Duraclip 16mm Xlg Repostn - [id number] Implanted:Qty: 1 on 11/07/2022 by Sebastián Martinez MD at ENDOSCOPY [facility] [employer] 09/16/2024 [id number] / / [id number] Duraclip 16mm Xlg Repostn - [id number] Implanted:Qty: 1 on 11/07/2022 by Sebastián Martinez MD at ENDOSCOPY [facility] [employer] 09/16/2024 [id number] / / [id number] Duraclip 16mm Xlg Repostn - [id number] Implanted:Qty: 1 on 11/07/2022 by Sebastián Martinez MD at ENDOSCOPY [facility] [employer] 09/16/2024 [id number] / / [id number] Duraclip 16mm Xlg Repostn - [id number] Implanted:Qty: 1 on 11/07/2022 by Sebastián Martinez MD at ENDOSCOPY [facility] [employer] 09/16/2024 [id number] / / [id number] Duraclip 16mm Xlg Repostn - [id number] Implanted:Qty: 1 on 11/07/2022 by Sebastián Martinez MD at ENDOSCOPY [facility] [employer] 09/16/2024 [id number] / / [id number] Duraclip 16mm Xlg Repostn - [id number] Implanted:Qty: 1 on 11/07/2022 by Sebastián Martinez MD at ENDOSCOPY [facility] [employer] 09/16/2024 [id number] / / [id number] Clip Quick 2.8mm 230cm - [id number] Implanted:Qty: 1 on 11/07/2022 by Sebastián Martinez MD at ENDOSCOPY [facility] Colon [employer] 03/19/2025 HX-UR.A / / 25K Clip Quick 2.8mm 230cm - [id number] Implanted:Qty: 1 on 11/07/2022 by Sebastián Martinez MD at ENDOSCOPY [facility] [employer] 03/19/2025 HX-202UR.A / / [id number] documented as of this encounter Visit Diagnoses Diagnosis Chronic depression Depressive disorder, not elsewhere classified documented in this encounter Care Teams Lap Machine Tender Relationship Specialty Start Date End Date Ana M Morrissey MD [address] [place] [address] PCP - General 12/27/02 documented as of this encounter
--- OUTSIDE RECORDS SUMMARY | 2024-07-14 16:12 | External Medical Summary | Summary of Care ---
Author Name Unknown Organization [facility] Address [address] [place] [address] Phone [phone] Care Team Providers Care Patient Financial Advocate Name Role Phone Ana M Morrissey MD Primary Care Provider [phone] Encounter Details Date Type Department Care Team (Late st Contact Info) Description 07/08/2024 Refill [facility] [address] [place] [address] Ana M Morrissey MD [address] [place] [address] Chronic depression Allergies Active Allergy [...] as of this encounter (statuses as of 07/08/2024) Medications Medication Sig Dispensed Refills Start Date End Date Status ASPIRIN EC 81 MG PO TBECIndications:t akes at night Take by mouth at bedtime. This med should NOT be Crushed or Chewed 0 7 Active VITAMIN B 12 100 MCG PO LOZG Takes 400 mcg daily OTC 4 Lozenge 0 1 Active Ambient Clinical AnalyticsTOUCH ULTRA SYSTEM W/DEVICE KITIndications:DM type 2, goal [...] LancetsIndication s:DM type 2, not at goal (HCC) Use [...] in the morning. 90 Tablet 1 4 07/08/20 24 Discontinu ed(Refill) documented as of this encounter (statuses as of 07/08/2024) Active Problems Problem Noted Date Diagnosed Date [...] as of this encounter (statuses as of 07/08/2024) Resolved Problems Problem Noted Date Diagnosed Date [...] as of this encounter (statuses as of 07/08/2024) Immunizations Name Administration Dates Next Due COVID-19 mRNA, LNP-s, No Pre serve, 2-Dose Series (Earlier Media) 02/05/2022,02/23/2021,02/02/2021 COVID-19, MRNA-LNP, 23-24, P F, 50 MCG/0.5 mL, 12 YRS AND ABOVE, IM (MODERNA-Spikevax) 09/06/2023 Pneumococcal Conjugate Vacc, 13 Valent (Prevnar) 11/30/2015 Pneumococcal Conjugate Vacci ne, 20-valent ([id number]) 09/06/2023 Pneumococcal Polysaccharide PPV23 (Pneumovax) 03/26/2008 RSV [...] encounter Miscellaneous Notes * Telephone Encounter - Ana M Morrissey MD - 07/08/2024 6:16 PM EDTSigned Prescriptions: Disp Refills Escitalopram Oxalate 20 MG Oral Tablet (Le*90 Tab*1 Sig: Take 1 Tablet by mouth in the morning.Authorizing Provider: ANA M MORRISSEY * Telephone Encounter - Clarita Paz MED ASSIST - 07/08/2024 9:08 AM EDT Received request for medication refill: Escitalopram Pending Prescriptions: Disp Refills Escitalopram Oxalate 20 MG Oral Tablet (L*90 Tab*1 Sig: Take 1 Tablet by mouth in the morning. Last Visit: 04/19/2024 (in office), 11/02/2020 (telemedicine) Next Visit: Visit date not found Last date the medication was ordered: 04/27/2024 Patient Active Problem List Diagnosis Esophageal reflux Irritable bowel syndrome Hypothyroidism Diaphragmatic hernia Kidney disease, chronic, stage III (GFR 30-59 ml/min) (HCC) DM TYPE 2 CAUSING RENAL DZ DYSLIPIDEMIA, GOAL LDL BELOW 100 Peripheral vascular disease (HCC) Vitamin D deficiency Left knee DJD Gout Granuloma annulare Chronic rhinitis Tobacco use disorder Abdominal aortic ectasia (HCC) HTN, goal below 140/90 Type 2 diabetes mellitus with hemoglobin A1c goal of less than 8.0% (HCC) Spastic bladder Chronic depression Diabetes mellitus with stage 3 chronic kidney disease (HCC) Type 2 diabetes mellitus with peripheral artery disease (HCC) Hypertensive kidney disease with stage 3a chronic kidney disease (HCC) Moderate episode of recurrent major depressive disorder (HCC) COPD exacerbation (HCC) Chronic obstructive pulmonary disease (HCC) Dementia, vascular, mixed (HCC) Other emphysema (HCC) Severe episode of recurrent major depressive disorder, without psychotic features (HCC) Acute embolism and thrombosis of unspecified deep veins of left lower extremity (HCC) Stage 3b chronic kidney disease (HCC) Labs: Lab Results Component Value Date/Time CREATININE - [facility] 1.3 (H) 02/26/2024 11:12 AM CREATININE - [facility] 1.3 (H) 12/01/2020 12:17 PM CREATININE, RANDOM URINE - [facility] 94 08/01/2023 11:30 AM CREATININE, RANDOM URINE - [facility] 32 12/10/2020 12:01 PM Lab Results Component Value Date/Time POTASSIUM - [facility] 4.1 02/26/2024 11:12 AM POTASSIUM - [facility] 5.4 (H) 12/01/2020 12:17 PM Lab Results Component Value Date/Time TSH - [facility] 0.49 11/22/2023 01:25 PM TSH - [facility] 0.54 12/10/2020 11:54 AM Lab Results Component Value Date/Time LDL CHOLESTEROL (CALCULATED) - [facility] UNINTERPRETABLE RESULT 12/03/2018 08:10 AM LDL CHOLESTEROL (CALCULATED) - [facility] UNINTERPRETABLE RESULT 12/07/2017 08:32 AM LDL CHOLESTEROL (DIRECT MEASURE) - [facility] 80 02/26/2024 11:12 AM LDL CHOLESTEROL (DIRECT MEASURE) - [facility] 79 11/22/2023 01:25 PM LDL CHOLESTEROL (DIRECT MEASURE) - [facility] 65 01/09/2020 08:00 AM LDL CHOLESTEROL (DIRECT MEASURE) - [facility] 78 12/03/2018 08:10 AM LDL CHOLESTEROL (DIRECT MEASURE) - [facility] 102 04/26/2012 12:17 PM LDL CHOLESTEROL (DIRECT MEASURE) - [facility] 88 01/06/2011 08:12 AM Lab Results Component Value Date/Time ALT - [facility] 30 03/24/2023 01:03 PM ALT - [facility] 14 07/22/2020 11:55 AM Hemoglobin AIC Results: Lab Results Component Value Date/Time HEMOGLOBIN A1C - [facility] 7.1 (H) 02/26/2024 11:12 AM HEMOGLOBIN A1C - [facility] 6.8 (H) 08/24/2023 10:04 AM HEMOGLOBIN A1C - [facility] 6.5 (H) 03/24/2023 01:03 PM HEMOGLOBIN A1C - [facility] 7.2 (H) 12/10/2020 11:54 AM HEMOGLOBIN A1C - [facility] 6.9 (H) 07/22/2020 12:06 PM HEMOGLOBIN A1C - [facility] 7.0 (H) 01/09/2020 08:00 AM documented in this encounter Plan of Treatment Upcoming Encounters Date Type Department Care Team (Late st Contact Info) Description 08/07/2024 3:00 PM EDT Office Visit Gastroenterology, [facility] [address] [address] Karin Hawkins CRNP [address] [address] 08/15/2024 9:30 AM EDT Office Visit Audiology [facility] [address] [address] Keely Mcarthur Au.D. [address] [address] 08/15/2024 10:15 AM EDT Office Visit Otolaryngology [facility] [address] [place] [address] Genny Corona PA-C [address] [place] [address] 08/15/2024 2:00 PM EDT Office Visit Nephrology, [facility] [address] [facility] [place] [address] ZeNikki sutherland PA-C [address] [place] [address] 09/27/2024 10:00 AM EST Office Visit Neurology [facility] [address] [facility] [place] [address] Jerrica Calderon CRNP [address] [place] [address] 03/28/2025 10:00 AM EDT Office Visit Neurology [facility] [address] [place] [address] Stephanie Mcfadden, [address] [place] [address] Scheduled Procedures Name Priority Associated Diagnoses Date/Ti me COLONOSCOPY FLEXIBLE PROXIMAL DIAGNOSTIC Recall History of colon polyps Health Maintenance Due Date Last Done Comments DISCUSS TOBACCO CESSATION (Capri FRANKEL TO SMARTSET #3126) 1940 Adult Wellness Visit 06/11/2020 06/11/2019 DXA Scan 06/13/2023 06/13/2016, 04/20, 04/29/2011, Additional history exists COVID-19 Vaccine (2022- 4 season) 2024 09/06/2023, 09/06/2022, 02/05/2022, Additional history exists Depression Monitoring 03/24/2024 03/24/2023 Influenza Vaccine (FLU shot) (#1) 2024 07/19/2023, 07/19/2023, 09/06/2022, Additional history exists TSH 11/22/2024 11/22/2023, 11/0 02/2022, 10/15/2021, Additional history exists O2 ASSESSMENT COMPLETED IN P AST YEAR FOR COPD 04/19/2025 04/19/2024 Zoster Vaccines Completed 05/02/2021, 11/20, 03/07/2015 documented as of this encounter Medical Devices Implanted Type Area Equine Manager Device Identifier Shelf Expiration Date Model / Serial / Lot Clip Quick 2.8mm 230cm - [id number] Implanted:Qty: 1 on 07/20/2022 by Jesus Massey MD at END[facility]COPY [facility] [employer] 09/19/2024 HX-202UR.A / / [id number] Clip Quick 2.8mm 230cm - [id number] Implanted:Qty: 1 on 11/07/2022 by Sebastián Martinez MD at ENDOSCOPY [facility] [employer] 03/19/2025 HX-UR.A / / 25K Clip Quick 2.8mm 230cm - [id number] Implanted:Qty: 1 on 11/07/2022 by Sebastián Martinez MD at ENDOSCOPY [facility] [employer] 03/19/2025 HX-UR.A / / 25K Duraclip 16mm Xlg Repostn - [id number] Implanted:Qty: 1 on 11/07/2022 by Sebastián Martinez MD at ENDOSCOPY [facility] [employer] 09/16/2024 [id number] / / [id number] Duraclip 16mm Xlg Repostn - [id number] Implanted:Qty: 1 on 11/07/2022 by Sebastián Martinez MD at ENDOSCOPY [facility] [employer] 09/16/2024 [id number] / / [id number] Duraclip 16mm Xlg Repostn - [id number] Implanted:Qty: 1 on 11/07/2022 by Sebastián Martinez MD at ENDOSCOPY [facility] [employer] 09/16/2024 [id number] / / [id number] Duraclip 16mm Xlg Repostn - [id number] Implanted:Qty: 1 on 11/07/2022 by Sebastián Martinez MD at ENDOSCOPY [facility] [employer] 09/16/2024 [id number] / / [id number] Duraclip 16mm Xlg Repostn - [id number] Implanted:Qty: 1 on 11/07/2022 by Sebastián Martinez MD at ENDOSCOPY [facility] [employer] 09/16/2024 [id number] / / [id number] Duraclip 16mm Xlg Repostn - [id number] Implanted:Qty: 1 on 11/07/2022 by Sebastián Martinez MD at ENDOSCOPY [facility] [employer] 09/16/2024 [id number] / / [id number] Clip Quick 2.8mm 230cm - [id number] Implanted:Qty: 1 on 11/07/2022 by Sebastián Martinez MD at ENDOSCOPY [facility] [employer] 03/19/2025 HX-202UR.A / / 25K Clip Quick 2.8mm 230cm - [id number] Implanted:Qty: 1 on 11/07/2022 by Sebastián Martinez MD at ENDOSCOPY [facility] [employer] 03/19/2025 [id number]-202UR.A / / [id number] documented as of this encounter Visit Diagnoses Diagnosis Chronic depression Depressive disorder, not elsewhere classified documented in this encounter Care Teams Patient Financial Advocate Relationship Specialty Start Date End Date Ana M Morrissey MD [address] [place] [address] PCP - General 12/27/02 documented as of this encounter
[2024-07-14 16:31] LABS: Basophils # (auto) 0.02 K/uL (0.00-0.20); Basophils % (auto) 0.4 %; Eosinophils # (auto) 0.02 K/uL (0.00-0.50); Eosinophils % (auto) 0.4 %; Hematocrit (blood only) 43.9 % (37.0-47.0); Hemoglobin 14.5 g/dl (12.0-16.0); Immature Granulocytes # (auto) 0.03 K/uL (0.01-0.20); Immature Granulocytes % (auto) 0.6 %; Lymphocytes # (auto) 1.01 K/uL (1.20-3.40); Mean Corpuscular Hemoglobin 33.1 pg (25.0-34.0); Mean Corpuscular Volume 100.2 fL (80.0-100.0); Mean Platelet Volume 10.2 fL (9.4-12.4); Monocytes # (auto) 0.52 K/uL (0.11-0.59); Monocytes % (auto) 10.8 %; Neutrophils % (auto) 66.8 %; Platelet Count 169 K/uL (130-400); RDW Coefficient of Variation 13.1 % (11.5-14.5); RDW Standard Deviation 48.2 fL (36.4-46.3); Red Blood Count 4.38 M/uL (4.20-5.40)
[2024-07-14 16:49] LABS: Alanine Aminotransferase 22 U/L (7-52); Albumin Globulin Ratio 1.4 (0.9-2); Albumin Level 3.8 gm/dl (3.4-5.0); Alkaline Phosphatase 74 U/L (34-104); Anion Gap 7 (3-11); Aspartate Aminotransferase 23 U/L (13-39); BUN Creatinine Ratio 13.4 (10-20); Bilirubin,Total 0.4 mg/dl (0.2-1.0); Blood Urea Nitrogen 17 mg/dl (6-23); Carbon Dioxide 29 mmol/L (21-32); Chloride 99 mmol/L (98-107); Est GFR (African American) 44.9 ml/min; Est GFR (Non-African American) 38.7 ml/min; Globulin 2.7 gm/dl (2.5-4.0); Glucose 204 mg/dl (70-99(Fasting)); Potassium 3.6 mmol/L (3.5-5.1); Sodium 135 mmol/L (136-145); Total Protein 6.5 gm/dl (6.0-8.3)
[2024-07-14 17:04] LABS: Influenza A virus by PCR Negative (Neg); Influenza B virus by PCR Negative (Neg); RSV by PCR Negative (Neg); SARS CoV2 RNA(COVID-19) Ceph POSITIVE (Negative)
[2024-07-14 17:19] LABS: Troponin I High Sensitivity 10.9 pg/ml (0-14)
--- NOTE | 2024-07-14 17:37 | Emergency Department Note ---
Impression & Plan COVID-19, Dementia, Hallucinations, Acute UTI ED Provider Note Provider: Roman Santo MD DATE OF SERVICE: 07/14/2024 CHIEF COMPLAINT: Likely COVID, hallucinations HISTORY OF PRESENT ILLNESS: Patient is a 84-year-old female past medical history significant for emphysema, hypertension, memory issues presenting here today with son for evaluation she is been unwell for the past 3 days. Evidently tested positive at the [facility] where she resides. Son states that she started to have hallucinations and is seeing family members. Evidently started water out of her apartment according to staff therapy. Fall last week. Denies pain. Uses cane or walker to ambulate. Patient states her family and her son who is present states they do not feel that she drinks enough. States a bit of urinary frequency. Denies significant chest pain or shortness of breath. Is vaccinated for COVID. Unsure if she has had COVID before but certainly no significant illness in the past related to it as far as her son are aware. Patient denies feeling confused but does endorse some tiredness. Son states he is concerned given her significant worsened hallucinations which were not present before now seeing her at her apartment and he has concerns for her safety. The [facility] provide some assistance but he is concerned that she may wander away or hurt her self as he is having these increased hallucinations and does not really realize it herself. PAST MEDICAL HISTORY: As noted above MEDICATIONS: reviewed home medications SOCIAL HISTORY: , lives at the [facility] for last 2 months PHYSICAL EXAM: GENERAL: alert and oriented in no acute distress on stretcher Head: normocephalic and atraumatic EYES: No injection, discharge or icterus. EOMI. NECK: Trachea midline. Good range of motion ENT: Mucous membranes pink and moist. LUNGS: Airway patent. No retractions. Breath sounds clear with good air entry bilaterally. HEART: Regular rate and rhythm. No chest wall tenderness ABDOMEN: Soft and non-tender, without guarding or rebound. SKIN: Acyanotic, warm, dry, without rashes EXTREMITIES: Without swelling, tenderness or deformity NEUROLOGICAL: No focal deficits. No aphasia. No facial droop or slurred speech. Ambulatory with 1 assist EK bpm sinus rhythm with PAC. No PVC. No acute ST segment elevation or depression with QTc of 450. Patient's laboratory studies and imaging reviewed. Differential includes Infection, dehydration, metabolic abnormality, hypo/hyperglycemia, electrolyte disturbance, anemia, hypoxia, cardiac sources, intracerebral event, toxicologic, neurologic, as well as other pathologies. IMPRESSION/MEDICAL DECISION MAKING: Patient vitals generally reassuring and not hypoxic. Afebrile here. Somewhat hypertensive. Blood work obtained without significant abnormalities with little bit of chronic kidney disease. No evidence of flu or RSV but positive COVID test consistent with exam. Do not believe the patient suffering from pneumonia. EKG troponin completed to exclude cardiac abnormality but denies significant chest pain. Blood work here without evidence of hepatitis or pancreatitis. No severe electrolyte abnormalities. Given her recent fall and the report of some [employer] did complete a head CT and on my review no evidence of intracranial bleeding noted. Patient without focal neurological deficit and doubt CVA. Benign abdomen and doubt acute intra-abdominal process versus perforation, bowel obstruction, volvulus, or diverticulitis. Urinalysis completed and sent to exclude UTI that could be complicating. Believe likely however it is COVID and exacerbating her underlying dementia causing some delirium and release hallucinations. In discussion with her son, given concerns for her safety in her current living environment for more assistance and monitoring he strongly feels that she should be observed here. Patient was agreeable. Hospitalist was contacted for further care. Urinalysis returned concerning for infection and given a dose of ceftriaxone here. DIAGNOSIS: COVID-19, hallucinations, dementia, UTI DISPOSITION: Hospitalist will evaluate Patient was agreeable with this plan. Past Med/Surg History Problem List (Updated 07/14/24 @ 18:51 by Roman Santo M.D.) Acute UTI (Acute) Hallucinations (Acute) Dementia (Acute) COVID-19 (Acute) [place] (Acute) Closed head injury (Acute) Enteropathogenic Escherichia coli infection Emphysema lung Influenza A (Acute) Fever (Acute) Hypoxia (Acute) Weakness (Acute) Encounter for pre-operative examination Medical History Acid reflux Benign hypertension (09/29/11) Depression Diabetes mellitus Diverticulitis Forgetfulness DISCUSSED WITH PCP History of anesthesia reaction WITH HYSTERECTOMY TOOK A LONGER TIME TO COME OUT OF History of gout Hyperlipidemia Hypothyroid Kidney disease STAGE 3 Vitamin B 12 deficiency Surgical History H/O tubal ligation History of cholecystectomy History of colonoscopy with polypectomy History of hysterectomy History of left cataract surgery Hx of left breast biopsy Family History Son Family history of diabetes mellitus Son Family history of diabetes mellitus Social History Smoking Status: Never smoker Tobacco Type: Cigarettes Cigarettes Per Day: 20; Second Hand Exposure: No; Do You Dip or Chew Tobacco: No; Hx Alcohol Use: No Hx Substance Use: No Preferred Language: [place] Communication Ability: Effective Communication Ability Comment: PHONE INTERVIEW WITH DAUGHTER ALEXIS PAULA - PLEASE SEE PAT COMMUNICATION NOTES Communication Tools: Physical Gestures [employer] Required: Yes Beliefs That Will Affect Care: None Current Living Situation: Alone Feels Safe at Home: Yes Assistive Devices: Cane and Walker Allergies Allergies Allergy/AdvReac Type Severity Reaction Status Date / Time azithromycin Allergy Severe EDEMA Verified 03/05/24 23:54 FACE/LIPS/TONGUE/SKIN PEELING indomethacin Allergy Intermediate Rash Verified 03/05/24 23:54 Macrolide Antibiotics Allergy Intermediate SKIN Verified 03/05/24 23:54 REDDENED, BURNING nitrofurantoin Allergy Intermediate RASH/SKIN Verified 03/05/24 23:54 [From Macrobid] REDDENED AND BURNING SENSATION NSAIDS (Non-Steroidal Allergy Intermediate RASH/PT Verified 03/05/24 23:54 Anti-Inflamma HAS KIDNEY DISEASE - REASON THIS IS LISTED paroxetine Allergy Intermediate Rash Verified 03/05/24 23:54 oseltamivir [From Tamiflu] Allergy Unknown ON Verified 03/05/24 23:54 [facility] LIST cyclobenzaprine AdvReac Intermediate Vomiting Verified 03/05/24 23:54 metformin AdvReac Intermediate Diarrhea Verified 03/05/24 23:54 rofecoxib AdvReac Intermediate BLACK Verified 03/05/24 23:54 STOOLS Sulfa (Sulfonamide AdvReac Mild Headache Verified 03/05/24 23:54 Antibiotics) sulfamethoxazole AdvReac Mild Headache Verified 03/05/24 23:54 [From Bactrim] trimethoprim [From Bactrim] AdvReac Mild Headache Verified 03/05/24 23:54 Sympathomimetics Allergy Unknown ON Uncoded 03/05/24 23:54 [facility] LIST/PT DAUGHTER DOES NOT RECALL THIS ONE Home Meds Home Medications Medication Instructions Recorded Confirmed albuterol sulfate 90 mcg/actuation 2 inh inhalation Q6H PRN Shortness 12/02/21 03/06/24 aerosol inhaler Of Breath Or Wheezing allopurinol 100 mg tablet 200 mg PO QAM 12/02/21 03/06/24 aspirin 81 mg tablet,delayed 81 mg PO HS 12/02/21 03/06/24 release atorvastatin 40 mg tablet 40 mg PO QAM 12/02/21 03/06/24 calcium carbonate 500 mg PO QAM 12/02/21 03/06/24 cholecalciferol (vitamin D3) 25 12.5 mcg PO 3XWK 12/02/21 03/06/24 mcg (1,000 unit) tablet (Vitamin D3) cyanocobalamin (vitamin B-12) 100 400 mcg PO DAILY 12/02/21 03/06/24 mcg tablet (Vitamin B-12) fluticasone propionate 50 2 spray intranasal UD PRN Nasal 12/02/21 03/06/24 mcg/actuation nasal Congestion spray,suspension furosemide 20 mg tablet (Lasix) 20 mg PO 2XWK 12/02/21 03/06/24 glipizide 10 mg tablet 10 mg PO BID 12/02/21 03/06/24 levothyroxine 125 mcg tablet 125 mcg PO DAILYBB 12/02/21 03/06/24 lisinopril 20 mg tablet 20 mg PO QAM 12/02/21 03/06/24 loratadine 10 mg tablet (Claritin) 10 mg PO QAM 12/02/21 03/06/24 magnesium chloride 64 mg 64 mg PO BID 12/02/21 03/06/24 (magnesium chloride) tablet,delayed release (Mag 64) meclizine 25 mg tablet 25 mg PO TID PRN Dizziness 12/02/21 03/06/24 metoprolol succinate 100 mg 100 mg PO DAILY 12/02/21 03/06/24 tablet,extended release 24 hr omeprazole 40 mg capsule,delayed 40 mg PO QAM 12/02/21 03/06/24 release dicyclomine 10 mg capsule 10 mg PO BID Cramps 11/21/22 03/06/24 ferrous sulfate 325 mg (65 mg 325 mg PO HS 11/21/22 03/06/24 iron) tablet bupropion HCl 75 mg tablet 75 mg PO AMHS 05/13/23 03/06/24 dextromethorphan-guaifenesin 30 1 tab PO BID PRN Cough 05/13/23 03/06/24 mg-600 mg tablet extended [id number] hr (Mucinex DM) donepezil 10 mg tablet 10 mg PO QAM 05/13/23 03/06/24 dulaglutide 0.75 mg/0.5 mL 0.75 mg subcut WK 05/13/23 03/06/24 subcutaneous pen injector (Trulicity) escitalopram oxalate 10 mg tablet 10 mg PO DAILY 05/13/23 03/06/24 fluticasone fur. 100 mcg-umeclid 1 inh inhalation QAM 05/13/23 03/06/24 62.5 mcg-vilant 25 mcg inhalat.powder (Trelegy Ellipta) polyethylene glycol 3350 17 17 g PO DAILY PRN Constipation 05/13/23 03/06/24 gram/dose oral powder Results & Data (ED) Vital Signs Vital Signs - 24 hr 07/14/24 16:10 07/14/24 18:40 07/14/24 18:47 Temperature 36.5 C Temperature Source Temporal Artery Scan Pulse Rate 110 H Pulse Rate [Apical] 56 L Pulse Rhythm Regular Pulse Strength Normal Respiratory Rate 19 22 Respiratory Effort / Characteristics Non-Labored Non-Labored Spontaneous Respiratory Depth Normal Normal Respiratory Pattern Regular Regular Blood Pressure 161/68 H Blood Pressure [Right Arm] 192/81 H Blood Pressure Mean 99 Blood Pressure Mean [Right Arm] 118 Blood Pressure Position Sitting Pulse Oximetry 98 98 Oxygen Delivery Method Room Air Room Air Oxygen Flow Rate 0 Sepsis Recent Fever Within 48 Hours No Sepsis New/Unexplained Change in Mental Status No Sepsis Action Taken by Nursing No Action Required Laboratory Data 07/14/24 16:00 07/14/24 16:00 Lab Results 07/14/24 07/14/24 Range/Units 16:00 17:55 WBC 4.80 (4.8-10.8) K/ul RBC 4.38 (4.20-5.40) M/uL Hgb 14.5 (12.0-16.0) g/dl Hct 43.9 (37.0-47.0) % MCV 100.2 H (80.0-100.0) fL MCH 33.1 (25.0-34.0) pg MCHC 33.0 (32.0-36.0) g/dL RDW Std Deviation 48.2 H (36.4-46.3) fL RDW Coeff of Kaitlynn 13.1 (11.5-14.5) % Plt Count 169 (130-400) K/uL MPV 10.2 (9.4-12.4) fL Immature Gran % (Auto) 0.6 % Neut % (Auto) 66.8 % Lymph % (Auto) 21.0 % [place] % (Auto) 10.8 % Eos % (Auto) 0.4 % Baso % (Auto) 0.4 % Neut # (Auto) 3.20 (1.40-6.50) K/uL Lymph # (Auto) 1.01 L (1.20-3.40) K/uL [place] # (Auto) 0.52 (0.11-0.59) K/uL Eos # (Auto) 0.02 (0.00-0.50) K/uL Baso # (Auto) 0.02 (0.00-0.20) K/uL Immature Gran # (Auto) 0.03 (0.01-0.20) K/uL Sodium 135 L (136-145) mmol/L Potassium 3.6 (3.5-5.1) mmol/L Chloride 99 (98-107) mmol/L Carbon Dioxide 29 (21-32) mmol/L Anion Gap 7 (3-11) BUN 17 (6-23) mg/dl Creatinine 1.27 H (0.6-1.2) mg/dl Est Cr Clr Drug Dosing Not Reportable Est GFR ( Amer) 44.9 ml/min Est GFR (Non-Af Amer) 38.7 ml/min BUN/Creatinine Ratio 13.4 (10-20) Glucose 204 H (70-99(Fasting)) mg/dl Calcium 9.0 (8.6-10.3) mg/dl Total Bilirubin 0.4 (0.2-1.0) mg/dl AST 23 (13-39) U/L ALT 22 (7-52) U/L Alkaline Phosphatase 74 (34-104) U/L Troponin I High Sens 10.9 (0-14) pg/ml Total Protein 6.5 (6.0-8.3) gm/dl Albumin 3.8 (3.4-5.0) gm/dl Globulin 2.7 (2.5-4.0) gm/dl Albumin/Globulin Ratio 1.4 (0.9-2) Urine Color Yellow Urine Appearance Clear (Clear) Urine pH 6.0 (4.5-7.5) Ur Specific [place] 1.009 (1.000-1.030) Urine Protein 2+ H (Negative) Urine Glucose (UA) Negative (Negative) Urine Ketones Negative (Negative) Urine Blood Negative (Negative) Urine Nitrite Negative (Negative) Urine Bilirubin Negative (Negative) Urine Urobilinogen Negative (Negative) Ur Leukocyte Esterase 2+ H (Negative) Urine WBC (Auto) 21-50 H (0-5) /hpf Urine RBC (Auto) 0-2 (0-2) /hpf U Hyaline Cast (Auto) 0-2 (0-2) /lpf U Epithel Cells (Auto) 3-5 H (0-2) /hpf Urine Bacteria (Auto) 1+ H (None Seen) SARS-CoV-2 (PCR) POSITIVE A (Negative) Influenza Type A (PCR) Negative (Neg) Influenza Type B (PCR) Negative (Neg) RSV (RT-PCR) Negative (Neg) Administered Medications Ceftriaxone Sodium (Rocephin) 2,000 mg in 50 mls @ 100 mls/hr IV NOW STA Stop: 07/14/24 19:04 Last Admin: 07/14/24 18:44 Dose: 100 mls/hr Documented By: [facility] Imaging Data Radiologist's Impression: Head CT 07/14/24 16:[address] DOSE: 547.75 mGy.cm HISTORY: confusion TECHNIQUE: Multiaxial CT images of the head were performed without the use of intravenous contrast. Automated exposure control was utilized for this study. A dose lowering technique was utilized adhering to the principles of ALARA. Comparison: Head CT 07/01/2024. Findings: The paranasal sinuses and mastoid air cells are clear. The calvarium and skull base are intact. The ventricles and sulci are within normal limits. There is no mass, hematoma, midline shift, or acute infarct. 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 This remains unchanged. Impression: No significant change compared to the prior study. No acute intracranial abnormality. ACT 112: Negative or not required by law. Electronically signed by: Filiberto Guevara M.D. 07/14/2024 6:42 PM Discharge Plan Visit Data Chief Complaint: Confusion Stated Complaint: COVID, CONFUSION, DEHYDRATION ED Provider: Roman Santo Discharge Problem: COVID-19, Dementia, Hallucinations, Acute UTI Patient Disposition: Being Evaluated by Hospitalist Forms Stand Alone Forms: My [facility] Prescriptions Prescriptions: No Action atorvastatin 40 mg Tablet 40 mg PO QAM cyanocobalamin (vitamin B-12) [Vitamin B-12] 100 mcg Tablet 400 mcg PO DAILY lisinopril 20 mg Tablet 20 mg PO QAM glipizide 10 mg Tablet 10 mg PO BID Rx Instructions: TAKE PRIOR TO MEALS allopurinol 100 mg Tablet 200 mg PO QAM omeprazole 40 mg Capsule,Delayed Release(Dr/Ec) 40 mg PO QAM aspirin 81 mg Tablet,Delayed Release (Dr/Ec) 81 mg PO HS meclizine 25 mg Tablet 25 mg PO TID PRN (Reason: Dizziness) Patient Comments: HAVEN'T TAKEN IN AWHILE levothyroxine 125 mcg Tablet 125 mcg PO DAILYBB calcium carbonate 500 mg calcium (1,250 mg) Tablet,Chewable 500 mg PO QAM furosemide [Lasix] 20 mg Tablet 20 mg PO 2XWK Rx Instructions: TAKE THIS MED EVERY MONDAY AND MONDAY. fluticasone propionate 50 mcg/actuation [place],Suspension 2 spray INTRANASAL UD PRN (Reason: Nasal Congestion) loratadine [Claritin] 10 mg Tablet 10 mg PO QAM cholecalciferol (vitamin D3) [Vitamin D3] 25 mcg (1,000 unit) Tablet 12.5 mcg PO 3XWK Rx Instructions: TAKE MON, WED, MON. Mag 64 64 mg Tablet,Delayed Release (Dr/Ec) 64 mg PO BID metoprolol succinate 100 mg tablet extended release 24 hr 100 mg PO DAILY albuterol sulfate 90 mcg/actuation HFA aerosol inhaler 2 inh inhalation Q6H PRN (Reason: Shortness Of Breath Or Wheezing) dicyclomine 10 mg capsule 10 mg PO BID ferrous sulfate 325 mg (65 mg iron) Tablet 325 mg PO HS Trelegy Ellipta 100-62.5-25 mcg blister with device 1 inh INHALATION QAM escitalopram oxalate 10 mg tablet 10 mg PO DAILY polyethylene glycol 3350 17 gram/dose Powder 17 g PO DAILY PRN (Reason: Constipation) donepezil 10 mg tablet 10 mg PO QAM bupropion HCl 75 mg tablet 75 mg PO AMHS Trulicity 0.75 mg/0.5 mL pen injector 0.75 mg SUBCUT WK Rx Instructions: MONDAY MORNINGS Mucinex DM 30-600 mg Tablet Extended Release 12 Hr 1 tab PO BID PRN (Reason: Cough) Referrals Referrals: SANTIAGO, [Primary Care Provider] -
[2024-07-14 18:07] LABS: Appearance Urine Clear (Clear); Bacteria Urine Automated 1+ (None Seen); Bilirubin Urine Negative (Negative); Blood Urine Negative (Negative); Cast Urine Automated 0-2 /lpf (0-2); Color Urine Yellow; Glucose Urine UA Negative (Negative); Ketones Urine Negative (Negative); Leukocyte Esterase Urine 2+ (Negative); Nitrite Urine Negative (Negative); Protein Urine 2+ (Negative); RBC Urine Automated 0-2 /hpf (0-2); Specific Gravity Urine 1.009 (1.000-1.030); Urobilinogen Urine Negative (Negative); WBC Urine Automated 21-50 /hpf (0-5)
[2024-07-14] MEDS: cefTRIAXone SODIUM 2,000 MG/50 ML BAG IV STA (18:44)
--- NOTE | 2024-07-14 18:45 | CT Scan Report ---
HEAD CT NONCONTRAST CT DOSE: 547.75 mGy.cm HISTORY: confusion TECHNIQUE: Multiaxial CT images of the head were performed without the use of intravenous contrast. A utomated exposure control was utilized for this study. A dose lowering technique was utilized adheri ng to the principles of ALARA. Comparison: Head CT 07/01/2024. Findings: The paranasal sinuses and mastoid air cells are clear. The calvarium and skull base are int act. The ventricles and sulci are within normal limits. There is no mass, hematoma, midline shift, or acute infarct. 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 This remains unchanged. Impression: No significant change compared to the prior study. No acute intracranial abnormality. ACT 112: Negative or not required by law. Electronically signed by: Filiberto Guevara M.D. 07/14/2024 6:42 PM
--- NOTE | 2024-07-14 18:49 | History & Physical Report ---
Date of Service July 14, 2024 Assessment & Plan (1) Acute hyperactive delirium due to another medical condition: (2) COVID-19 virus infection: (3) Alzheimer's dementia with behavioral disturbance: (4) Hypothyroid: (5) Chronic renal failure, stage 3b: (6) Diabetes mellitus type 2, noninsulin dependent: Plan Patient 84-year-old female with acute delirium in the setting of Alzheimer's dementia due to COVID-19 infection. Possible urinary tract infection versus chronic bacteriuria. Patient in her current living situation is unsafe to return to and was recommended for hospitalization. Mid to the hospital Continue supportive care Discussed treatment with the son. He requested that we hold off on any COVID directed medications at this time. I support this decision will continue supportive care and observing for worsening of her condition Monitor glucose, cover with insulin scale Continue other home medications As needed Haldol for severe agitation As needed Ativan for anxiety Therapies Case management to help coordinate return to the [facility] Check TSH Reviewed advanced directives and discussed with son, patient would request all interventions except intubation and invasive respiratory support History of Present Illness Chief Complaint: Confusion, hallucinations, wandering Primary Care Provider: [facility] Patient is an 84-year-old female resident of the [facility] with known dementia. Couple days ago started with some URI symptoms including some runny nose, cough and some diarrhea as well. Tested positive for COVID 19. Over the last couple days her confusion, her anxiety, restlessness has increased. She started having some hallucinations and talking to her . Also pryor ving some disruptions in her sleep-wake cycle getting up in the middle night walking out to the nursing staff. Due to this I do her son was very concerned about her safety at the [facility] in her personal care spot and was brought to the emergency room for evaluation. In the emergency room her vital signs are stable. She is not hypoxic. Laboratory studies were essentially unremarkable but due to this delirium was referred to our service for further evaluation. Time my evaluation patient is resting comfortably in a chair. She denies any specific complaints. She is aware enough that she has had increased confusion but is unreliable to any history. Her son who is also there with her confirms the history. He states that since she was moved to the [facility] in April of this year they have noticed more issues with her being confused and poor memory as this was a significant change in her in her living routine. He is not aware that she has had any fevers. Has not other really noticed any other constitutional like symptomatology. Allergies Allergy/AdvReac Type Severity Reaction Status Date / Time azithromycin Allergy Severe EDEMA Verified 03/05/24 23:54 FACE/LIPS/TONGUE/SKIN PEELING indomethacin Allergy Intermediate Rash Verified 03/05/24 23:54 Macrolide Antibiotics Allergy Intermediate SKIN Verified 03/05/24 23:54 REDDENED, BURNING nitrofurantoin Allergy Intermediate RASH/SKIN Verified 03/05/24 23:54 [From Macrobid] REDDENED AND BURNING SENSATION NSAIDS (Non-Steroidal Allergy Intermediate RASH/PT Verified 03/05/24 23:54 Anti-Inflamma HAS KIDNEY DISEASE - REASON THIS IS LISTED paroxetine Allergy Intermediate Rash Verified 03/05/24 23:54 oseltamivir [From Tamiflu] Allergy Unknown ON Verified 03/05/24 23:54 [facility] LIST cyclobenzaprine AdvReac Intermediate Vomiting Verified 03/05/24 23:54 metformin AdvReac Intermediate Diarrhea Verified 03/05/24 23:54 rofecoxib AdvReac Intermediate BLACK Verified 03/05/24 23:54 STOOLS Sulfa (Sulfonamide AdvReac Mild Headache Verified 03/05/24 23:54 Antibiotics) sulfamethoxazole AdvReac Mild Headache Verified 03/05/24 23:54 [From Bactrim] trimethoprim [From Bactrim] AdvReac Mild Headache Verified 03/05/24 23:54 Sympathomimetics Allergy Unknown ON Uncoded 03/05/24 23:54 [facility] LIST/PT DAUGHTER DOES NOT RECALL THIS ONE Home Medications Medication Instructions Recorded Confirmed Type albuterol sulfate 90 mcg/actuation 2 inh inhalation Q6H PRN Shortness 12/02/21 03/06/24 History aerosol inhaler Of Breath Or Wheezing allopurinol 100 mg tablet 200 mg PO QAM 12/02/21 03/06/24 History aspirin 81 mg tablet,delayed 81 mg PO HS 12/02/21 03/06/24 History release atorvastatin 40 mg tablet 40 mg PO QAM 12/02/21 03/06/24 History calcium carbonate 500 mg PO QAM 12/02/21 03/06/24 History cholecalciferol (vitamin D3) 25 12.5 mcg PO 3XWK 12/02/21 03/06/24 History mcg (1,000 unit) tablet (Vitamin D3) cyanocobalamin (vitamin B-12) 100 400 mcg PO DAILY 12/02/21 03/06/24 History mcg tablet (Vitamin B-12) fluticasone propionate 50 2 spray intranasal UD PRN Nasal 12/02/21 03/06/24 History mcg/actuation nasal Congestion spray,suspension furosemide 20 mg tablet (Lasix) 20 mg PO 2XWK 12/02/21 03/06/24 History glipizide 10 mg tablet 10 mg PO BID 12/02/21 03/06/24 History levothyroxine 125 mcg tablet 125 mcg PO DAILYBB 12/02/21 03/06/24 History lisinopril 20 mg tablet 20 mg PO QAM 12/02/21 03/06/24 History loratadine 10 mg tablet (Claritin) 10 mg PO QAM 12/02/21 03/06/24 History magnesium chloride 64 mg 64 mg PO BID 12/02/21 03/06/24 History (magnesium chloride) tablet,delayed release (Mag 64) meclizine 25 mg tablet 25 mg PO TID PRN Dizziness 12/02/21 03/06/24 History metoprolol succinate 100 mg 100 mg PO DAILY 12/02/21 03/06/24 History tablet,extended release 24 hr omeprazole 40 mg capsule,delayed 40 mg PO QAM 12/02/21 03/06/24 History release dicyclomine 10 mg capsule 10 mg PO BID Cramps 11/21/22 03/06/24 History ferrous sulfate 325 mg (65 mg 325 mg PO HS 11/21/22 03/06/24 History iron) tablet bupropion HCl 75 mg tablet 75 mg PO AMHS 05/13/23 03/06/24 History dextromethorphan-guaifenesin 30 1 tab PO BID PRN Cough 05/13/23 03/06/24 History mg-600 mg tablet extended [id number] hr (Mucinex DM) donepezil 10 mg tablet 10 mg PO QAM 05/13/23 03/06/24 History dulaglutide 0.75 mg/0.5 mL 0.75 mg subcut WK 05/13/23 03/06/24 History subcutaneous pen injector (Trulicity) escitalopram oxalate 10 mg tablet 10 mg PO DAILY 05/13/23 03/06/24 History fluticasone fur. 100 mcg-umeclid 1 inh inhalation QAM 05/13/23 03/06/24 History 62.5 mcg-vilant 25 mcg inhalat.powder (Trelegy Ellipta) polyethylene glycol 3350 17 17 g PO DAILY PRN Constipation 05/13/23 03/06/24 History gram/dose oral powder Past Med/Surg History Problem List (Updated 07/14/24 @ 18:54 by Marin Correa DO) Diabetes mellitus type 2, noninsulin dependent Chronic renal failure, stage 3b Alzheimer's dementia with behavioral disturbance COVID-19 virus infection Acute hyperactive delirium due to another medical condition Acute UTI (Acute) Hallucinations (Acute) Dementia (Acute) COVID-19 (Acute) [place] (Acute) Closed head injury (Acute) Enteropathogenic Escherichia coli infection Emphysema lung Influenza A (Acute) Fever (Acute) Hypoxia (Acute) Weakness (Acute) Encounter for pre-operative examination Medical History Acid reflux Benign hypertension (09/29/11) Depression Diabetes mellitus Diverticulitis Forgetfulness DISCUSSED WITH PCP History of anesthesia reaction WITH HYSTERECTOMY TOOK A LONGER TIME TO COME OUT OF History of gout Hyperlipidemia Hypothyroid Kidney disease STAGE 3 Vitamin B 12 deficiency Surgical History H/O tubal ligation History of cholecystectomy History of colonoscopy with polypectomy History of hysterectomy History of left cataract surgery Hx of left breast biopsy Family History Son Family history of diabetes mellitus Son Family history of diabetes mellitus Social History Smoking Status: Never smoker Tobacco Type: Cigarettes Cigarettes Per Day: 20; Second Hand Exposure: No; Do You Dip or Chew Tobacco: No; Hx Alcohol Use: No Hx Substance Use: No Preferred Language: Macedonian Communication Ability: Effective Communication Ability Comment: PHONE INTERVIEW WITH DAUGHTER ALEXIS Butt PLEASE SEE PAT COMMUNICATION NOTES Communication Tools: Physical Gestures Foundation Relations Director Required: Yes Beliefs That Will Affect Care: None Current Living Situation: Alone Feels Safe at Home: Yes Assistive Devices: Cane and Walker Review of Systems Review of Systems: Pertinent positive and negative review of systems as mentioned in the HPI Physical Exam Physical Exam: Constitutional: Alert, ill in appearance, nontoxic HEENT: Mucous membranes moist. Sclera clear Neck: Soft, no adenopathy Lungs: Clear to auscultation, decreased, no wheezes rales or rhonchi, no distress CV: S1-S2, regular Abdomen: Soft, nontender, nondistended Extremities: No significant edema Musculoskeletal: No significant joint tenderness Neuro: No focal deficits Psych: Cooperative, oriented to person, impaired short-term and long-term memory Results & Data Results & Data Vital Signs (Past 12 Hours) Vital Signs Temp Pulse Resp BP Pulse Ox O2 Del Method 07/14/24 16:10 36.5 C 110 H 19 161/68 H 98 Room Air Diagnostic Findings Reviewed imaging, laboratory and diagnostic studies. Pertinent findings as below. Sodium 135 Creatinine 1.27, baseline Glucose 204 Personally reviewed EKG tracing, sinus rhythm no acute ST-T wave changes Urinalysis 1+ bacteria 2+ leukocyte esterase, no nitrates COVID test positive Head CT no acute abnormalities Code Status & VTE Plan VTE Prophylaxis Plan VTE Prophylaxis will be ordered: Yes
[2024-07-14] MEDS ORDERED: guaiFENesin SUGAR FREE 100 MG/5 ML UDC PO PRN (18:57)
[2024-07-14] MEDS ORDERED: GLUCOSE 40% GEL 15 GM TUBE PO PRN (21:33)
[2024-07-14] MEDS ORDERED: ALUMINUM/MAGNESIUM SUSP 30 ML UDC PO PRN (21:33)
[2024-07-14] MEDS ORDERED: DEXTROSE 50% 50 ML SYRINGE IV PRN (21:33)
[2024-07-14] MEDS ORDERED: haloperidoL 1 MG TAB PO PRN (21:33)
[2024-07-14] MEDS ORDERED: MAGNESIUM HYDROXIDE SUSP 30 ML UDC PO PRN (21:33)
[2024-07-14] MEDS ORDERED: GLUCAGON FOR INJ 1 MG VIAL SQ PRN (21:33)
[2024-07-14] MEDS ORDERED: POLYETHYLENE (MIRALAX) 17 GM PACK PO PRN (21:33)
[2024-07-14] MEDS ORDERED: CARBOHYDRATES FOR HYPOGLYCEMIA PO PRN (21:33)
[2024-07-14] MEDS ORDERED: GLUCOSE 10 TAB/TUBE PO PRN (21:33)
[2024-07-14] MEDS: INSULIN ASPART PER UNIT CHARGE SC SCH (22:24)
[2024-07-14] MEDS: buPROPion HCl 75 MG TABLET PO SCH (22:24)
[2024-07-14] MEDS: MAGNESIUM CHLORIDE W/CALCIUM 64MG DELAYED REL TAB PO SCH (22:24)
[2024-07-14] MEDS: ASPIRIN 81 MG ECTAB PO SCH (22:24)
[2024-07-14] MEDS: ENOXAPARIN INJ 40 MG/0.4 ML SYR SQ SCH (22:25)
[2024-07-14] MEDS: MELATONIN 3 MG TAB PO PRN (23:39)
[2024-07-14] MEDS: HALOPERIDOL LACTATE 5 MG/ML 1 ML VIAL IM PRN (23:39)
[2024-07-14] MEDS: LORazepam 0.5 MG TAB PO PRN (23:39)
[2024-07-15] MEDS: LEVOTHYROXINE SODIUM 125 MCG TABLET PO SCH (06:15)
[2024-07-15 07:51] LABS: BUN Creatinine Ratio 16.3 (10-20); Calcium 8.6 mg/dl (8.6-10.3); Creatinine Clr Calc Pharmacy 37.4 ml/min; Est GFR (African American) 57.1 ml/min; Est GFR (Non-African American) 49.3 ml/min; Potassium 3.5 mmol/L (3.5-5.1)
[2024-07-15 08:07] LABS: Thyroid Stimulating Hormone 3.629 uIu/ml (0.300-4.500)
[2024-07-15] MEDS: lisinopril 20 MG TAB PO SCH (08:43)
[2024-07-15] MEDS: ESCITALOPRAM OXALATE 10 MG TAB PO SCH (08:43)
[2024-07-15] MEDS: METOPROLOL SUCC 50MG EXT REL TAB PO SCH (08:43)
[2024-07-15] MEDS: PANTOprazole 40 MG TAB PO SCH (08:43)
[2024-07-15] MEDS: ATORVASTATIN 40 MG TAB PO SCH (08:44)
[2024-07-15] MEDS: allopurinoL 100 MG TAB PO SCH (08:44)
[2024-07-15] MEDS: DONEPEZIL HCL 10 MG TAB PO SCH (08:44)
[2024-07-15] MEDS: UMECLIDINIUM/VILANTEROL 62.5/25MCG 7 PUFFS/INHALER INH SCH (08:45)
[2024-07-15] MEDS: FLUTICASONE FUROATE 100MCG 14 PUFFS/INHALER INH SCH (08:45)
[2024-07-15] MEDS ORDERED: NON-FORMULARY MEDICATION (Fluticasone-Umeclidin-Vilanter [Trelegy Ellipta] 100-62.5-25 mcg INH SCH (09:00)
--- NOTE | 2024-07-15 15:32 | Hospitalist Progress Note ---
Date of Service July 15, 2024 Assessment & Plan (1) Alzheimer's dementia with behavioral disturbance: (2) Acute hyperactive delirium due to another medical condition: (3) COVID-19 virus infection: (4) Hypothyroid: (5) Chronic renal failure, stage 3b: (6) Diabetes mellitus type 2, noninsulin dependent: Plan Patient presents with underlying Alzheimer's dementia with delirium exacerbated by COVID-19. Encephalopathy and delirium seems to be somewhat improved, however talking with the son last night and the daughter at the bedside today the patient's dementia seems to have been progressing a little bit more rapidly over the past couple months. Reviewed case loader operator conversation with the [facility], patient has been having issues with falling, dementia has limited her cognitive abilities to know how to use her walker and use her walker regularly. Scheduled dose of Zyprexa in the evening to hopefully minimize sundowning symptoms Therapy evaluation Supportive care for COVID infection At this time pursuing potential SNF rehab. Daughter at bedside and updated, she reports she is the better person to keep updated during the week. Urine culture negative, urinary tract infection ruled out Admission and Anticipated Discharge Date Admission Date: July 14, 2024 Subjective Nursing reports that patient did have some confusion and restlessness last evening did get as needed IM Haldol. Physical Exam Physical Exam: Constitutional: Alert HEENT: Mucous membranes moist. Lungs: Clear to auscultation, decreased, no wheezes rales or rhonchi CV: S1-S2, regular Abdomen: Soft, nontender, nondistended Extremities: No significant edema Neuro: No focal deficits Psych: Pleasantly confused Results & Data Results & Data Vital Signs (Past 12 Hours) Vital Signs Temp Pulse Resp BP Pulse Ox O2 Del Method 07/15/24 15:15 36.6 C 68 16 176/79 H 94 Room Air 07/15/24 07:46 36.6 C 56 L 18 161/82 H 94 Room Air Diagnostic Findings Reviewed imaging, laboratory and diagnostic studies. Pertinent findings as below. TSH 3.6 Urine culture no growth
[2024-07-15] MEDS: ONDANSETRON INJ 2 MG/ML 2 ML VIAL IV PRN (15:43)
[2024-07-15] MEDS: ACETAMINOPHEN 325 MG TAB PO PRN (15:43)
[2024-07-15] MEDS: OLANZAPINE 2.5 MG TAB PO SCH (18:19)
--- NOTE | 2024-07-16 05:52 | Electrocardiogram Report ---
Test Reason : Blood Pressure : */* mmHG Vent. Rate : 60 BPM Atrial Rate : 60 BPM P-R Int : 160 ms QRS Dur : 76 ms QT Int : 450 ms P-R-T Axes : * -4 -5 degrees QTcB Int : 450 ms Sinus rhythm with Premature atrial complexes Low voltage QRS Septal infarct (cited on or before 21-Nov-2022) Abnormal ECG When compared with ECG of 05-Mar-2024 21:00, Questionable change in QRS axis Confirmed by Nba Payan ([id number]) on 07/16/2024 5:52:13 AM Referred By: SANTIAGO Confirmed By: Nba Payan
--- NOTE | 2024-07-16 12:51 | Hospitalist Progress Note ---
Date of Service July 16, 2024 Assessment & Plan (1) Alzheimer's dementia with behavioral disturbance: (2) Acute hyperactive delirium due to another medical condition: (3) COVID-19 virus infection: (4) Hypothyroid: (5) Chronic renal failure, stage 3b: (6) Diabetes mellitus type 2, noninsulin dependent: (7) Acute metabolic encephalopathy: Plan Patient's acute delirium and metabolic encephalopathy in the setting of her dementia and COVID infection seems to have cleared and suspect she is at her baseline dementia. Communication with nurse, no needed as needed medications for behaviors Continue scheduled Zyprexa in the evening Check chest x-ray for patient's complaint of some tightness with breathing in the setting of her COVID infection. O2 sat is in the mid 90s on room air. Patient not a candidate for COVID directed therapies and family specifically requested no specific COVID medications. Continue therapies Case management pursuing potential rehab placement at [facility] Updated patient's daughter via phone Admission and Anticipated Discharge Date Admission Date: July 14, 2024 Subjective No acute issues overnight. And patient reports she slept well. Feels as though she has a little tightness in the bottom of her chest and back when taking a deep breath Physical Exam Physical Exam: Constitutional: Alert HEENT: Mucous membranes moist. Lungs: Decreased breath sounds, few crackles at bases CV: S1-S2, regular Abdomen: Soft, nontender, nondistended Extremities: No significant edema Neuro: No focal deficits Psych: Cooperative, normal mood Results & Data Results & Data Vital Signs (Past 12 Hours) Vital Signs Temp Pulse Resp BP Pulse Ox O2 Del Method 07/16/24 07:30 Room Air 07/16/24 07:30 36.6 C 72 18 162/77 H 93 Room Air
--- NOTE | 2024-07-16 15:26 | XRay Report ---
XR chest 1V portable HISTORY: Shortness of breath. COMPARISON: Chest 11/21/2022. FINDINGS: No pneumothorax. No pleural effusions. No focal lung consolidations to suggest a pneumonia. No evidence for pulmonary edema. The heart is normal in size. No acute fractures identified. Calcifi cations within the aortic knob. IMPRESSION: No significant change compared to the prior study. No acute process. ACT 112: Negative or not required by law. Electronically signed by: Filiberto Guevara M.D. 07/16/2024 3:23 PM
--- NOTE | 2024-07-17 14:10 | Hospitalist Progress Note ---
Date of Service July 17, 2024 Assessment & Plan (1) Alzheimer's dementia with behavioral disturbance: Plan: Admitted with acute delirium and metabolic encephalopathy in setting of dementia History of COVID-19 virus infection which seems to be cleared No evidence of acute infection Clinically much better today and she has been eating and drinking normally and getting physical therapy Seems to be at her baseline as of today 07/09/2024 Will be discharged tomorrow (2) Acute hyperactive delirium due to another medical condition: (3) COVID-19 virus infection: (4) Hypothyroid: Plan: Continue supplement (5) Chronic renal failure, stage 3b: Plan: Creatinine is normal (6) Diabetes mellitus type 2, noninsulin dependent: Plan: Blood sugar remains stable (7) Acute metabolic encephalopathy: Plan Progress note from prior hospitalist as below: Patient's acute delirium and metabolic encephalopathy in the setting of her dementia and COVID infection seems to have cleared and suspect she is at her baseline dementia. Communication with nurse, no needed as needed medications for behaviors Continue scheduled Zyprexa in the evening Check chest x-ray for patient's complaint of some tightness with breathing in the setting of her COVID infection. O2 sat is in the mid 90s on room air. Patient not a candidate for COVID directed therapies and family specifically requested no specific COVID medications. Continue therapies Case management pursuing potential rehab placement [facility] Updated patient's daughter via phone Admission and Anticipated Discharge Date Admission Date: July 14, 2024 Subjective 07/17/2024 The patient was seen and examined in medical floor She has been feeling much better and does not have any more confusion Has been getting physical therapy and ambulating without any difficulties She will be discharged to her place of residence tomorrow Review of Systems Review of Systems: All systems reviewed and are unremarkable except as noted below Physical Exam Physical Exam: Sitting on the chair without any acute distress Constitutional: average body habitus; not ill appearing Eyes: PERRL, conjunctivae normal, anicteric sclerae ENMT: external ear and nose normal, oropharynx normal Neck: trachea midline, no thyromegaly Respiratory: no respiratory distress Auscultation: lungs clear to auscultation bilaterally Cardiovascular: Rate/Rhythm: regular rate and regular rhythm; not tachycardic Heart Sounds: normal S1, normal S2 and + murmur Extremities: no edema Gastrointestinal (Abdomen): Inspection/Auscultation: normal bowel sounds; abdomen not distended Percussion/Palpation: abdomen soft; abdomen nontender Musculoskeletal: No acute arthritis involving any of the joint Neurologic: normal touch/pain/proprioception and moves all extremities; no focal motor deficits Lymphatic: no cervical or axillary lymphadenopathy Results & Data Results & Data Vital Signs (Past 12 Hours) Vital Signs Temp Pulse Resp BP Pulse Ox O2 Del Method 07/17/24 08:15 Room Air 07/17/24 08:01 36.7 C 55 L 16 169/77 H 92 Room Air Medications Administered Current Inpatient Medications Acetaminophen (Acetaminophen 325 Mg Tab) 650 mg PO Q4H PRN PRN Reason: pain/fever Stop: 08/13/24 21:32 Last Admin: 07/16/24 21:27 Dose: 650 mg Al Hydrox/Mg Hydrox/Simethicone (Aluminum/Magnesium Susp 30 Ml Udc) 30 ml PO Q6H PRN PRN Reason: Dyspepsia Stop: 08/13/24 21:32 Allopurinol (Allopurinol 100 Mg Tab) 200 mg PO QAM [facility] Stop: 08/14/24 08:59 Last Admin: 07/17/24 09:15 Dose: 200 mg Aspirin (Aspirin 81 Mg Ectab) 81 mg PO HS [facility] Stop: 08/13/24 21:32 Last Admin: 07/16/24 21:30 Dose: 81 mg Atorvastatin Calcium (Atorvastatin 40 Mg Tab) 40 mg PO QAM [facility] Stop: 08/14/24 08:59 Last Admin: 07/17/24 09:14 Dose: 40 mg Bupropion HCl (Bupropion Hcl 75 Mg Tablet) 75 mg PO AMHS [facility] Stop: 08/13/24 21:32 Last Admin: 07/17/24 09:15 Dose: 75 mg Dextrose (Dextrose 50% 50 Ml Syringe) 25 - 50 ml IV UD PRN; Protocol PRN Reason: Hypoglycemia Protocol Stop: 08/13/24 21:32 Donepezil HCl (Donepezil Hcl 10 Mg Tab) 10 mg PO QAM [facility] Stop: 08/14/24 08:59 Last Admin: 07/17/24 09:15 Dose: 10 mg Enoxaparin Sodium (Enoxaparin Inj 40 Mg/0.4 Ml Syr) 40 mg SQ Q24H [facility] Stop: 08/13/24 21:59 Last Admin: 07/16/24 21:28 Dose: 40 mg Escitalopram Oxalate (Escitalopram Oxalate 10 Mg Tab) 10 mg PO DAILY [facility] Stop: 08/14/24 08:59 Last Admin: 07/17/24 09:15 Dose: 10 mg Fluticasone Furoate (Fluticasone Furoate 100mcg 14 Puffs/Inhaler) 1 puffs INH DAILY [facility] Stop: 08/14/24 08:59 Last Admin: 07/17/24 09:16 Dose: 1 puffs Glucagon (Glucagon For Inj 1 Mg Vial) 1 mg SQ UD PRN; Protocol PRN Reason: Hypoglycemia Protocol Stop: 08/13/24 21:32 Glucose (Glucose 40% Gel 15 Gm Tube) 15 - 30 gm PO UD PRN; Protocol PRN Reason: Hypoglycemia Protocol Stop: 08/13/24 21:32 Glucose (Glucose 10 Tab/Tube) 4 - 8 tab PO UD PRN; Protocol PRN Reason: Hypoglycemia Treatment Stop: 08/13/24 21:32 Guaifenesin (Guaifenesin Sugar Free 100 Mg/5 Ml Udc) 100 mg PO Q6H PRN PRN Reason: Cough Stop: 08/13/24 18:56 Haloperidol (Haloperidol 1 Mg Tab) 2 mg PO Q4H PRN PRN Reason: aggitation, hallucinations Stop: 08/13/24 21:32 Haloperidol Lactate (Haloperidol Lactate 5 Mg/Ml 1 Ml Vial) 5 mg IM Q8H PRN PRN Reason: Agitation, severe Stop: 08/13/24 21:32 Last Admin: 07/14/24 23:39 Dose: 5 mg Insulin Aspart (Insulin Aspart Per Unit Charge) 0 units SC ACHS [facility] Stop: 08/13/24 21:32 Last Admin: 07/17/24 12:44 Dose: 4 units Levothyroxine Sodium (Levothyroxine Sodium 125 Mcg Tablet) 125 mcg PO DAILYBB [facility] Stop: 08/14/24 06:29 Last Admin: 07/17/24 06:11 Dose: 125 mcg Lisinopril (Lisinopril 20 Mg Tab) 20 mg PO QAM [facility] Stop: 08/14/24 08:59 Last Admin: 07/17/24 09:15 Dose: 20 mg Lorazepam (Lorazepam 0.5 Mg Tab) 0.25 mg PO Q6H PRN PRN Reason: Anxiety Stop: 08/13/24 21:32 Last Admin: 07/16/24 21:27 Dose: 0.25 mg Magnesium Chloride (Magnesium Chloride W/Calcium 64mg Delayed Rel Tab) 64 mg PO BID [facility] Stop: 08/13/24 21:32 Last Admin: 07/17/24 09:16 Dose: 64 mg Magnesium Hydroxide (Magnesium Hydroxide Susp 30 Ml Udc) 30 ml PO Q6H PRN PRN Reason: Constipation Stop: 08/13/24 21:32 Melatonin (Melatonin 3 Mg Tab) 6 mg PO HS PRN PRN Reason: Insomnia Stop: 08/13/24 21:32 Last Admin: 07/16/24 21:27 Dose: 6 mg Metoprolol Succinate (Metoprolol Succ 50mg Ext Rel Tab) 100 mg PO DAILY [facility] Stop: 08/14/24 08:59 Last Admin: 07/17/24 09:14 Dose: 100 mg Miscellaneous (Carbohydrates For Hypoglycemia ) 15 - 30 gm PO UD PRN PRN Reason: Hypoglycemia Protocol Stop: 08/13/24 21:32 Olanzapine (Olanzapine 2.5 Mg Tab) 2.5 mg PO QPM [facility] Stop: 08/14/24 18:59 Last Admin: 07/16/24 21:30 Dose: 2.5 mg Ondansetron HCl (Ondansetron Inj 2 Mg/Ml 2 Ml Vial) 4 mg IV Q6H PRN PRN Reason: Nausea Stop: 08/13/24 21:32 Last Admin: 07/15/24 15:43 Dose: 4 mg Pantoprazole Sodium (Pantoprazole 40 Mg Tab) 40 mg PO QAM [facility] Stop: 08/14/24 08:59 Last Admin: 07/17/24 09:16 Dose: 40 mg Polyethylene Glycol (Polyethylene (Miralax) 17 Gm Pack) 17 gm PO DAILY PRN PRN Reason: Constipation Stop: 08/13/24 21:32 Umeclidinium/Vilanterol (Umeclidinium/Vilanterol 62.5/25mcg 7 Puffs/Inhaler) 1 puffs INH DAILY [facility] Stop: 08/14/24 08:59 Last Admin: 07/17/24 09:17 Dose: 1 puffs
[2024-07-18 08:10] VITALS: RESP 16; TEMP 97.9; O2SAT 96
[2024-07-18 09:10] LABS: Basophils # (auto) 0.02 K/uL (0.00-0.20); Basophils % (auto) 0.4 %; Eosinophils # (auto) 0.03 K/uL (0.00-0.50); Eosinophils % (auto) 0.7 %; Hematocrit (blood only) 42.8 % (37.0-47.0); Hemoglobin 14.5 g/dl (12.0-16.0); Immature Granulocytes # (auto) 0.04 K/uL (0.01-0.20); Immature Granulocytes % (auto) 0.9 %; Mean Corpuscular Hemoglobin 33.2 pg (25.0-34.0); Mean Corpuscular Hgb Conc 33.9 g/dL (32.0-36.0); Mean Corpuscular Volume 97.9 fL (80.0-100.0); Mean Platelet Volume 11.1 fL (9.4-12.4); Monocytes # (auto) 0.46 K/uL (0.11-0.59); Monocytes % (auto) 10.1 %; Neutrophils # (auto) 2.42 K/uL (1.40-6.50); Neutrophils % (auto) 52.9 %; Platelet Count 144 K/uL (130-400); RDW Coefficient of Variation 12.8 % (11.5-14.5); RDW Standard Deviation 46.3 fL (36.4-46.3); Red Blood Count 4.37 M/uL (4.20-5.40); White Blood Count 4.57 K/ul (4.8-10.8)
[2024-07-18 09:34] LABS: BUN Creatinine Ratio 23.8 (10-20); Calcium 8.7 mg/dl (8.6-10.3); Creatinine Clr Calc Pharmacy 31.9 ml/min; Est GFR (African American) 47.1 ml/min; Est GFR (Non-African American) 40.6 ml/min
--- NOTE | 2024-07-18 11:00 | Hospitalist Progress Note ---
Date of Service July 18, 2024 Assessment & Plan (1) Alzheimer's dementia with behavioral disturbance: Plan: Admitted with acute delirium and metabolic encephalopathy in setting of dementia History of COVID-19 virus infection which seems to be cleared No evidence of acute infection Clinically much better today and she has been eating and drinking normally and getting physical therapy Seems to be at her baseline as of today 07/17/2024 Remains medically stable and seems to be at her baseline Discussed with the son that she will be discharged this afternoon She will be sent back to [facility] today (2) Acute hyperactive delirium due to another medical condition: (3) COVID-19 virus infection: Plan: Does not require any more isolation (4) Hypothyroid: Plan: Continue supplement (5) Chronic renal failure, stage 3b: Plan: Creatinine is normal (6) Diabetes mellitus type 2, noninsulin dependent: Plan: Blood sugar remains stable (7) Acute metabolic encephalopathy: Plan: Resolved and seems to be at her baseline Plan Progress note from prior hospitalist as below: Patient's acute delirium and metabolic encephalopathy in the setting of her dementia and COVID infection seems to have cleared and suspect she is at her baseline dementia. Communication with nurse, no needed as needed medications for behaviors Continue scheduled Zyprexa in the evening Check chest x-ray for patient's complaint of some tightness with breathing in the setting of her COVID infection. O2 sat is in the mid 90s on room air. Patient not a candidate for COVID directed therapies and family specifically requested no specific COVID medications. Continue therapies Case management pursuing potential rehab placement at [facility] Updated patient's daughter via phone Admission and Anticipated Discharge Date Admission Date: July 14, 2024 Subjective 07/17/2024 The patient was seen and examined in medical floor She has been feeling much better and does not have any more confusion Has been getting physical therapy and ambulating without any difficulties She will be discharged to her place of residence tomorrow 07/18/2024 The patient was seen and examined in medical floor in presence of her son She has been stable and denies any significant symptoms She will be discharged to [facility] this afternoon Review of Systems Review of Systems: All systems reviewed and are unremarkable except as noted below Physical Exam Physical Exam: Lying in bed without any acute distress Constitutional: average body habitus; not ill appearing Eyes: PERRL, conjunctivae normal, anicteric sclerae ENMT: external ear and nose normal, oropharynx normal Neck: trachea midline, no thyromegaly Respiratory: no respiratory distress Auscultation: lungs clear to auscultation bilaterally Cardiovascular: Rate/Rhythm: regular rate and regular rhythm; not tachycardic Heart Sounds: normal S1, normal S2 and + murmur Extremities: no edema Gastrointestinal (Abdomen): Inspection/Auscultation: normal bowel sounds; abdomen not distended Percussion/Palpation: abdomen soft; abdomen nontender Neurologic: normal touch/pain/proprioception and moves all extremities; no focal motor deficits and not confused Lymphatic: no cervical or axillary lymphadenopathy Results & Data Results & Data Vital Signs (Past 12 Hours) Vital Signs Temp Pulse Resp BP Pulse Ox O2 Del Method 07/18/24 08:09 36.6 C 49 L 16 170/74 H 96 Room Air Laboratory Results Short CBC 07/18/24 Range/Units 08:17 WBC 4.57 L (4.8-10.8) K/ul Hgb 14.5 (12.0-16.0) g/dl Hct 42.8 (37.0-47.0) % Plt Count 144 (130-400) K/uL BMP 07/18/24 08:17 Sodium 139 Potassium 4.0 Chloride 106 Carbon Dioxide 24 BUN 29 H Creatinine 1.22 H Glucose 162 H Calcium 8.7 Medications Administered Current Inpatient Medications Acetaminophen (Acetaminophen 325 Mg Tab) 650 mg PO Q4H PRN PRN Reason: pain/fever Stop: 08/13/24 21:32 Last Admin: 07/16/24 21:27 Dose: 650 mg Al Hydrox/Mg Hydrox/Simethicone (Aluminum/Magnesium Susp 30 Ml Udc) 30 ml PO Q6H PRN PRN Reason: Dyspepsia Stop: 08/13/24 21:32 Allopurinol (Allopurinol 100 Mg Tab) 200 mg PO QAM [facility] Stop: 08/14/24 08:59 Last Admin: 07/18/24 09:40 Dose: 200 mg Aspirin (Aspirin 81 Mg Ectab) 81 mg PO [facility] Stop: 08/13/24 21:32 Last Admin: 07/17/24 21:19 Dose: 81 mg Atorvastatin Calcium (Atorvastatin 40 Mg Tab) 40 mg PO QAM [facility] Stop: 08/14/24 08:59 Last Admin: 07/18/24 09:41 Dose: 40 mg Bupropion HCl (Bupropion Hcl 75 Mg Tablet) 75 mg PO [facility] CARLY Stop: 08/13/24 21:32 Last Admin: 07/18/24 09:41 Dose: 75 mg Dextrose (Dextrose 50% 50 Ml Syringe) 25 - 50 ml IV UD PRN; Protocol PRN Reason: Hypoglycemia Protocol Stop: 08/13/24 21:32 Donepezil HCl (Donepezil Hcl 10 Mg Tab) 10 mg PO QAM CARLY Stop: 08/14/24 08:59 Last Admin: 07/18/24 09:41 Dose: 10 mg Enoxaparin Sodium (Enoxaparin Inj 40 Mg/0.4 Ml Syr) 40 mg SQ Q24H CARLY Stop: 08/13/24 21:59 Last Admin: 07/17/24 21:21 Dose: 40 mg Escitalopram Oxalate (Escitalopram Oxalate 10 Mg Tab) 10 mg PO DAILY CARLY Stop: 08/14/24 08:59 Last Admin: 07/18/24 09:41 Dose: 10 mg Fluticasone Furoate (Fluticasone Furoate 100mcg 14 Puffs/Inhaler) 1 puffs INH DAILY CARLY Stop: 08/14/24 08:59 Last Admin: 07/18/24 09:43 Dose: 1 puffs Glucagon (Glucagon For Inj 1 Mg Vial) 1 mg SQ UD PRN; Protocol PRN Reason: Hypoglycemia Protocol Stop: 08/13/24 21:32 Glucose (Glucose 40% Gel 15 Gm Tube) 15 - 30 gm PO UD PRN; Protocol PRN Reason: Hypoglycemia Protocol Stop: 08/13/24 21:32 Glucose (Glucose 10 Tab/Tube) 4 - 8 tab PO UD PRN; Protocol PRN Reason: Hypoglycemia Treatment Stop: 08/13/24 21:32 Guaifenesin (Guaifenesin Sugar Free 100 Mg/5 Ml Udc) 100 mg PO Q6H PRN PRN Reason: Cough Stop: 08/13/24 18:56 Haloperidol (Haloperidol 1 Mg Tab) 2 mg PO Q4H PRN PRN Reason: aggitation, hallucinations Stop: 08/13/24 21:32 Haloperidol Lactate (Haloperidol Lactate 5 Mg/Ml 1 Ml Vial) 5 mg IM Q8H PRN PRN Reason: Agitation, severe Stop: 08/13/24 21:32 Last Admin: 07/14/24 23:39 Dose: 5 mg Insulin Aspart (Insulin Aspart Per Unit Charge) 0 units SC ACHS [facility] Stop: 08/13/24 21:32 Last Admin: 07/18/24 10:30 Dose: Not Given Levothyroxine Sodium (Levothyroxine Sodium 125 Mcg Tablet) 125 mcg PO DAILYBB [facility] Stop: 08/14/24 06:29 Last Admin: 07/18/24 05:15 Dose: 125 mcg Lisinopril (Lisinopril 20 Mg Tab) 20 mg PO QAM [facility] Stop: 08/14/24 08:59 Last Admin: 07/18/24 09:41 Dose: 20 mg Lorazepam (Lorazepam 0.5 Mg Tab) 0.25 mg PO Q6H PRN PRN Reason: Anxiety Stop: 08/13/24 21:32 Last Admin: 07/16/24 21:27 Dose: 0.25 mg Magnesium Chloride (Magnesium Chloride W/Calcium 64mg Delayed Rel Tab) 64 mg PO BID [facility] Stop: 08/13/24 21:32 Last Admin: 07/18/24 09:41 Dose: 64 mg Magnesium Hydroxide (Magnesium Hydroxide Susp 30 Ml Udc) 30 ml PO Q6H PRN PRN Reason: Constipation Stop: 08/13/24 21:32 Melatonin (Melatonin 3 Mg Tab) 6 mg PO HS PRN PRN Reason: Insomnia Stop: 08/13/24 21:32 Last Admin: 07/17/24 21:20 Dose: 6 mg Metoprolol Succinate (Metoprolol Succ 50mg Ext Rel Tab) 100 mg PO DAILY [facility] Stop: 08/14/24 08:59 Last Admin: 07/18/24 09:42 Dose: Not Given Miscellaneous (Carbohydrates For Hypoglycemia ) 15 - 30 gm PO UD PRN PRN Reason: Hypoglycemia Protocol Stop: 08/13/24 21:32 Olanzapine (Olanzapine 2.5 Mg Tab) 2.5 mg PO QPM [facility] Stop: 08/14/24 18:59 Last Admin: 07/17/24 21:20 Dose: 2.5 mg Ondansetron HCl (Ondansetron Inj 2 Mg/Ml 2 Ml Vial) 4 mg IV Q6H PRN PRN Reason: Nausea Stop: 08/13/24 21:32 Last Admin: 07/15/24 15:43 Dose: 4 mg Pantoprazole Sodium (Pantoprazole 40 Mg Tab) 40 mg PO QAM CARLY Stop: 08/14/24 08:59 Last Admin: 07/18/24 09:42 Dose: 40 mg Polyethylene Glycol (Polyethylene (Miralax) 17 Gm Pack) 17 gm PO DAILY PRN PRN Reason: Constipation Stop: 08/13/24 21:32 Umeclidinium/Vilanterol (Umeclidinium/Vilanterol 62.5/25mcg 7 Puffs/Inhaler) 1 puffs INH DAILY CARLY Stop: 08/14/24 08:59 Last Admin: 07/18/24 09:43 Dose: 1 puffs
[2024-07-18 12:07] VITALS: BP 124/77; PULSE 57
--- NOTE | 2024-07-19 07:54 | Discharge Summary ---
Date of Service July 19, 2024 Admission HPI Per Admitting Provider Patient is an 84-year-old female resident of the [facility] with known dementia. Couple days ago started with some URI symptoms including some runny nose, cough and some diarrhea as well. Tested positive for COVID 19. Over the last couple days her confusion, her anxiety, restlessness has increased. She started having some hallucinations and talking to her . Also having some disruptions in her sleep-wake cycle getting up in the middle night walking out to the nursing staff. Due to this I do her son was very concerned about her safety at the [facility] in her personal care spot and was brought to the emergency room for evaluation. In the emergency room her vital signs are stable. She is not hypoxic. Laboratory studies were essentially unremarkable but due to this delirium was referred to our service for further evaluation. Time my evaluation patient is resting comfortably in a chair. She denies any specific complaints. She is aware enough that she has had increased confusion but is unreliable to any history. Her son who is also there with her confirms the history. He states that since she was moved to the [facility] in April of this year they have noticed more issues with her being confused and poor memory as this was a significant change in her in her living routine. He is not aware that she has had any fevers. Has not other really noticed any other constitutional like symptomatology. Admission Exam Per Admitting Provider Physical Exam: Constitutional: Alert, ill in appearance, nontoxic HEENT: Mucous membranes moist. Sclera clear Neck: Soft, no adenopathy Lungs: Clear to auscultation, decreased, no wheezes rales or rhonchi, no distress CV: S1-S2, regular Abdomen: Soft, nontender, nondistended Extremities: No significant edema Musculoskeletal: No significant joint tenderness Neuro: No focal deficits Psych: Cooperative, oriented to person, impaired short-term and long-term memory Principal Diagnosis Alzheimer's dementia with behavioral disturbances, back to her baseline Discharge Exam Lying in bed without any acute distress Constitutional average body habitus; not ill appearing Eyes PERRL, conjunctivae normal, anicteric sclerae ENMT external ear and nose normal, oropharynx normal Neck trachea midline, no thyromegaly Respiratory no respiratory distress Auscultation: lungs clear to auscultation bilaterally Cardiovascular Rate/Rhythm: regular rate and regular rhythm; not tachycardic Heart Sounds: normal S1, normal S2 and + murmur Extremities: no edema Gastrointestinal (Abdomen) Inspection/Auscultation: normal bowel sounds; abdomen not distended Percussion/Palpation: abdomen soft; abdomen nontender Neurologic normal touch/pain/proprioception and moves all extremities; no focal motor deficits and not confused Lymphatic no cervical or axillary lymphadenopathy Discharge Data Allergies Allergy/AdvReac Type Severity Reaction Status Date / Time azithromycin Allergy Severe EDEMA Verified 07/14/24 20:02 FACE/LIPS/TONGUE/SKIN PEELING indomethacin Allergy Intermediate Rash Verified 07/14/24 20:02 Macrolide Antibiotics Allergy Intermediate SKIN Verified 07/14/24 20:02 REDDENED, BURNING nitrofurantoin Allergy Intermediate RASH/SKIN Verified 07/14/24 20:02 [From Macrobid] REDDENED AND BURNING SENSATION NSAIDS (Non-Steroidal Allergy Intermediate RASH/PT Verified 07/14/24 20:02 Anti-Inflamma HAS KIDNEY DISEASE - REASON THIS IS LISTED paroxetine Allergy Intermediate Rash Verified 07/14/24 20:02 oseltamivir [From Tamiflu] Allergy Unknown ON Verified 07/14/24 20:02 [facility] LIST cyclobenzaprine AdvReac Intermediate Vomiting Verified 07/14/24 20:02 metformin AdvReac Intermediate Diarrhea Verified 07/14/24 20:02 rofecoxib AdvReac Intermediate BLACK Verified 07/14/24 20:02 STOOLS Sulfa (Sulfonamide AdvReac Mild Headache Verified 07/14/24 20:02 Antibiotics) sulfamethoxazole AdvReac Mild Headache Verified 07/14/24 20:02 [From Bactrim] trimethoprim [From Bactrim] AdvReac Mild Headache Verified 07/14/24 20:02 Sympathomimetics Allergy Unknown ON Uncoded 07/14/24 20:02 [facility] LIST/PT DAUGHTER DOES NOT RECALL THIS ONE Consultations 07/14/24 18:11 ED Decision to Admit Stat Ordered Studies 07/14/24 16:45 CT head/brain wo con Stat Hospital Course (1) Alzheimer's dementia with behavioral disturbance: Admitted with acute delirium and metabolic encephalopathy in setting of dementia History of COVID-19 virus infection which seems to be cleared No evidence of acute infection Clinically much better today and she has been eating and drinking normally and getting physical therapy Seems to be at her baseline as of today 07/17/2024 Remains medically stable and seems to be at her baseline Discussed with the son that she will be discharged this afternoon She will be sent back to [facility] today (2) Acute hyperactive delirium due to another medical condition: (3) COVID-19 virus infection: Does not require any more isolation (4) Hypothyroid: Continue supplement (5) Chronic renal failure, stage 3b: Creatinine is normal (6) Diabetes mellitus type 2, noninsulin dependent: Blood sugar remains stable (7) Acute metabolic encephalopathy: Resolved and seems to be at her baseline Plan Progress note from prior hospitalist as below: Patient's acute delirium and metabolic encephalopathy in the setting of her dementia and COVID infection seems to have cleared and suspect she is at her baseline dementia. Communication with nurse, no needed as needed medications for behaviors Continue scheduled Zyprexa in the evening Check chest x-ray for patient's complaint of some tightness with breathing in the setting of her COVID infection. O2 sat is in the mid 90s on room air. Patient not a candidate for COVID directed therapies and family specifically requested no specific COVID medications. Continue therapies Case management pursuing potential rehab placement at [facility] Updated patient's daughter via phone Total Time Total Time Spent Total Time Spent (In Minutes): 40 minutes Discharge Plan Discharge Items Patient Disposition: Transfer [facility] Fac Reason For Visit: DELERIUM Discharge Diagnosis: Alzheimer's dementia with behavioral disturbances, back to her baseline Condition on Discharge: Good Activity: Resume your previous activity Non-emergency contact: Primary Care Provider Call non-emergency contact if: you have any medication questions and your symptoms worsen Follow-up/Referrals: SANTIAGO, [Primary Care Provider] - Diet: Carb Consistent or DM2 Addtl Attending Provider Instructions: Please take precautions to avoid falls No change with your current medications except a baby aspirin is added to your regimen Try to drink more fluid Please keep appointments with your healthcare providers Pending Studies at Discharge: No Stand-Alone Forms: My [facility] Skilled Items Patient informed of condition?: Yes DNR: No (Resuscitation Status: Conditional Code Other ACLS standard treatments/proce) Discharge Level of Care: Skilled Communicable Disease: No Discharge Prognosis: Stable Lines: None Urinary Catheter: No Medications and DC Order Prescriptions: New aspirin 81 mg Tablet,Delayed Release (Dr/Ec) 81 mg PO HS Qty: 30 0RF Continued atorvastatin 40 mg tablet 40 mg PO QAM polyethylene glycol 3350 [Miralax] 17 gram Powder In Packet 17 g PO DAILY PRN (Reason: Constipation) donepezil 10 mg tablet 10 mg PO QAM lisinopril 20 mg tablet 20 mg PO QAM glipizide 10 mg tablet 10 mg PO BID metoprolol succinate 100 mg tablet extended release 24 hr 100 mg PO QAM loperamide [Imodium A-D] 2 mg Tablet 2 mg PO AC PRN (Reason: Diarrhea) cyanocobalamin (vitamin B-12) [Vitamin B-12] 1,000 mcg Tablet 1,000 mcg PO DAILY allopurinol 100 mg tablet 200 mg PO QAM omeprazole 40 mg capsule,delayed release(DR/EC) 40 mg PO QAM acetaminophen [Tylenol Extra Strength] 500 mg Tablet 500 mg PO .Q4-6HR PRN (Reason: Pain) calcium carbonate [Tums Ultra] 400 mg calcium (1,000 mg) Tablet,Chewable 400 mg PO DAILY PRN (Reason: Indigestion) meclizine 25 mg tablet 25 mg PO TID PRN (Reason: .dizzyness) ferrous sulfate 325 mg (65 mg iron) tablet 325 mg PO AM[facility] levothyroxine 125 mcg tablet 125 mcg PO QAM bupropion HCl 75 mg tablet 75 mg PO BID bisacodyl 5 mg Tablet,Delayed Release (Dr/Ec) 5 mg PO DAILY PRN (Reason: Constipation) furosemide [Lasix] 20 mg Tablet 20 mg PO DAILY PRN (Reason: swelling) lorazepam 1 mg tablet 1 mg PO BID PRN (Reason: Anxiety) Mucinex DM 30-600 mg Tablet Extended Release 12 Hr 1 tab PO BID PRN (Reason: Cough) dicyclomine 10 mg capsule 10 mg PO BID loratadine [Claritin] 10 mg Tablet 10 mg PO DAILY PRN (Reason: allergies) escitalopram oxalate 20 mg tablet 20 mg PO QAM Refresh Classic (PF) 1.4-0.6 % Dropperette 1 - 2 drp OPHTHALMIC (EYE) DAILY PRN (Reason: .dry eyes) cholecalciferol (vitamin D3) 25 mcg (1,000 unit) tablet 500 unit PO 3XWK Rx Instructions: Mon, wed, fri magnesium chloride [Mag 64] 64 mg tablet,delayed release (DR/EC) 64 mg PO BID Trulicity 0.75 mg/0.5 mL pen injector 0.75 mg SUBCUT .QSUN Trelegy Ellipta 100-62.5-25 mcg blister with device 1 ea INHALATION QAM Discharge Orders: Discharge Order (Routine); Ordered 07/18/24 Ordered By: Latasha Franklin Admission Data Admit Date/Time: 07/14/24 18:44 Attending Provider: Latasha Franklin Admit Provider: Marin Correa Primary Care Provider: Az HENDERSON Providers: Marin Correa; [place],Care Other Interventions: Discharge Summary Assessment (RN) Last Done: 07/18/24 12:05
== END 2024-07-18 13:29 | DRG 177 ==
LOC: ED 16:05 → SUATTDRO 18:44 → 3W 18:44